=== PATIENT | female | born 1945 | race Caucasian/White ===

== ENCOUNTER 2023-09-10 08:00 | Outpatient (CLI) | payer MEDICARE, OTHER, SELFPAY ==
--- NOTE | ~2023-09-10 | MR_ITS ---
EXAMINATION: MR cervical spine wo con DATE: 09/10/2023 08:38 INDICATION: Other cervical disc degeneration. Neck pain. TECHNIQUE: Magnetic resonance imaging (MRI) of the cervical spine was performed without intravenous c ontrast. COMPARISON: None FINDINGS: There is 6 degrees levocurvature of cervicothoracic spine. There is 2 mm anterolisthesis of C7 on T1. Vertebral body heights are normal. There is moderately decreased disc height at C4-C5 and severely decreased disc height at C5-C6 and C6-C7. The spinal cord signal intensity is normal. The fo llowing disc levels are specifically discussed: C2-C3: The disc does not extend beyond the endplate margin. There is no uncovertebral joint osteoarth ritis. There is ankylosis of the facet joints without hypertrophy. There is no neural foraminal steno sis. There is no central canal stenosis. C3-C4: The disc does not extend beyond the endplate margin. There is moderate right and severe left u ncovertebral joint osteoarthritis. There is moderate right and severe left facet joint osteoarthritis . There is mild right and moderate left neural foraminal stenosis. There is no central canal stenosis . C4-C5: The disc is bulging. There is severe bilateral uncovertebral joint osteoarthritis. There is se melody bilateral facet joint osteoarthritis. There is mild bilateral neural foraminal stenosis. There i s mild central canal stenosis with ventral indentation of the spinal cord. C5-C6: The disc is bulging. There is severe bilateral uncovertebral joint osteoarthritis. There is se melody bilateral facet joint osteoarthritis. There is moderate right and mild left neural foraminal everette nosis. There is mild central canal stenosis with ventral indentation of the spinal cord. C6-C7: The disc is bulging. There is severe bilateral uncovertebral joint osteoarthritis. There is se melody right and mild left facet joint osteoarthritis. There is mild bilateral neural foraminal stenosi s. There is mild central canal stenosis. C7-T1: The disc does not extend beyond the endplate margin. There is no uncovertebral joint osteoarth ritis. There is severe bilateral facet joint osteoarthritis. There is mild bilateral neural foraminal stenosis. There is no central canal stenosis. IMPRESSION: 1. Severe cervical spondylosis. Reviewed, dictated and finalized at location A.
== END 2023-09-10 08:01 ==
DX: M43.02 Spondylolysis, cervical region (principal)
CPT/HCPCS: 72141

== ENCOUNTER 2023-11-27 13:56 | Outpatient (CLI) | payer MEDICARE, OTHER, SELFPAY ==
[2023-11-27 19:26] LABS: Basophils Absolute Auto 0.1 K/mm3 (0.0-0.1); Basophils Percent Auto 0.7 % (0.2-1.2); Eosinophils Absolute Auto 0.6 K/mm3 (0-0.3); Eosinophils Percent Auto 6.5 % (0-4.4); Hematocrit 46.4 % (37.0-47.0); Hemoglobin 15.4 g/dL (12.0-15.0); Immature Granulocyte Absolute 0.03 K/mm3 (0.00-0.031); Immature Granulocyte Percent A 0.3 % (0-0.5); Lymphocytes Absolute Auto 1.67 K/mm3 (0.9-3.2); Lymphocytes Percent Auto 17.2 % (18.3-44.2); Mean Corpuscular HGB Conc 33.2 g/dl (32-36); Mean Corpuscular Hemoglobin 30.1 pg (26-34); Mean Corpuscular Volume 90.6 fl (80-100); Mean Platelet Volume 10.9 fl (7.4-10.4); Monocytes Absolute Auto 0.7 K/mm3 (0.1-0.6); Neutrophils Absolute Auto 6.6 K/mm3 (1.3-6.7); Neutrophils Percent Auto 68.3 % (45.5-73.1); Platelet Count Result 202 k/mm3 (150-375); Red Blood Count 5.12 M/mm3 (4.2-5.4); Red Cell Distribution Width 14.2 % (11.5-14.5); White Blood Count 9.7 K/mm3 (4.5-10.0)
[2023-11-27 19:30] LABS: Alanine Aminotransferase 19 U/L (6-35); Albumin Level 4.3 g/dL (3.5-5.1); Alkaline Phosphatase 65 U/L (38-126); Anion Gap 6 mmol/L (4-12); Aspartate Amino Transferase 36 U/L (14-36); Bilirubin,Total 0.7 mg/dL (0.2-1.3); Blood Urea Nitrogen 14 mg/dL (7-17); Calcium 10.4 mg/dL (8.4-10.2); Carbon Dioxide 33 mmol/L (22-30); Chloride 99 mmol/L (98-107); Cholesterol 173 mg/dL (0-200); Estimated Glomerular Filt Rate > 60; Glucose 96 mg/dL (65-110); HDL Direct 40 mg/dL; Potassium 4.2 mmol/L (3.4-5.0); Sodium 138 mmol/L (137-145); Triglycerides 188 mg/dL (<150)
[2023-11-27 19:40] LABS: Vitamin D 25 Hydroxy 65.5 ng/mL
[2023-11-27 19:41] LABS: LDL Cholesterol Direct 91 mg/dL
== END 2023-11-27 13:57 | disposition home or self-care (01) ==
PROVIDERS: PCP Nurse Practitioner Adult Health; Visit Provider Nurse Practitioner Adult Health
DX: E55.9 Vitamin D deficiency, unspecified (principal); E78.5 Hyperlipidemia, unspecified
CPT/HCPCS: 36415; 80053; 80061; 82306; 84443; 85025

== ENCOUNTER 2024-04-01 10:32 | Outpatient (CLI) | payer MEDICARE, OTHER, SELFPAY ==
--- OUTSIDE RECORDS SUMMARY | 2024-04-01 10:48 | XMS_ITS | Continuity of Care Document ---
Author Name [facility] Organization [facility] Care Team Providers Care Resident Services Director Name Role Phone [facility] Unavailable Unavailable Medications Combined list of outpatient medications from Department of Defense and Veterans Affairs facilities.Medications provided include 1) outpatient medications from the last 15 months, and 2) patient-reported medications. Medication Details Route Status Patient Instructions Prescription Expires Prescription Number Last Dispense Date Ordering Provider Order Date Order Qty Source LOVASTATIN (lovastatin ), 40 MG, TABLET, ORAL, [employer] 1000 ea. BOTTLE Active [id number] 4 2023 90 Pharmac y Data Transac tion Service Facilit y METOPROLOL SUCCINATE (metoprolol succinate), 25 MG, TAB ER 24H, ORAL, [employer] 1000 ea. BOTTLE Active [id number] 4 2023 90 Pharmac y Data Transac tion Service Facilit y POTASSIUM CHLORIDE (potassium chloride), 20 MEQ, TAB ER PRT, ORAL, [employer], 500 ea. BOTTLE Active [id number] 4 2023 90 Pharmac y Data Transac tion Service Facilit y SYNTHROID (LEVOTHYROX INE SODIUM), 137 MCG, TABLET, ORAL, [facility] 90 ea. BOTTLE Active [id number] 4 2023 90 Pharmac y Data Transac tion Service Facilit y VITAMIN D2 (ergocalcif luis (vitamin D2)), 1250 MCG, CAPSULE, ORAL, [employer], 100 ea. BOTTLE Active [id number] 4 2023 12 Pharmac y Data Transac tion Service Facilit y VITAMIN D2 (ergocalcif luis (vitamin D2)), 1250 MCG, CAPSULE, ORAL, [employer], 100 ea. BOTTLE Active [id number] 4 2023 12 Pharmac y Data Transac tion Service Facilit y XARELTO (RIVAROXABA N), 20 MG, TABLET, ORAL, [facility] 90 ea. BOTTLE Active [id number] 4 2023 90 Pharmac y Data Transac tion Service Facilit y Allergies, Adverse Reactions, Alerts Combined list of allergies from Department of Defense and Veterans Affairs facilities. It does not include entries that were removed or entered in error. Substance Category Reaction Severity Reaction type Status Date Reported Comments Source CODEINE SULFATE (CODEINE SULF) Drug allergy (disorder) Unknown active 02/28/2007 [facility] ([facility]) Immunizations Combined list of available immunizations from the Department of Defense and Veterans Affairs facilities. Immunization Series Date Given Administered By Site Reaction Lot Number CVX Code Drug Experimental Psychologist Status Comments Source zoster recombinant 2019 ROB [facility]ILDERS () Not Given zoster recombina nt DoD Procedures Combined list of: 1) Procedures from Department of Veterans Affairs facilities going back up to thelast 18 months, not all [place] non-surgical procedures are included; 2) All procedures from the Department of Defense facilities. Procedure Procedure Type Code Date Perfomer Comments Francisco arango DIAGNOSTIC ULTRASOUND OF ABDOMEN AND RETROPERITONEUM 10/18/1994 [facility] UNILATERAL THYROID LOBECTOMY 08/23/1994 [facility] LAPAROSCOPIC CHOLECYSTECTOMY 07/21/1994 [facility] Social History Combined list of available smoking, tobacco, and other social history from Department of Defense and Veterans Affairs facilities. Social History Type Response Date Comment Francisco arango This section is an empty social history section. [facility]
--- OUTSIDE RECORDS SUMMARY | 2024-04-01 10:48 | XMS_ITS | Encounter Summary ---
Author Organization [facility] Address [address] [place] [id number] Care Team Providers Care Art Objects Salesperson Name Role Phone None, Provider Primary Care Provider Unavaila ble Reason for Referral * Surgical (Routine) - New Request Specialty Diagnoses / Procedures Referred By Porter shetty Referred To Contact Diagnoses Arthropathy of cervical facet joint Procedures Case request operating room: [facility] Cleve Deleon CNP [address] [address] Phone: tel: [phone] fax: Referral ID Status Reason Start Date Expiration Date V isits Requested Visits Authorized [id number] New Request 11/29/2023 11/28/2024 1 1 Encounter Details Date Type Department Care Team (Late st Contact Info) Description 11/29/2023 Prep for Procedure [facility] [address] [place], [place] [id number] [facility] [address] [facility] [address] [phone] (Work) Social History Tobacco Use Types Packs/Day Years Used Date Smoking Tobacco: Never Smokeless Tobacco: Never Alcohol Use Standard Drinks/Week Comments Not Currently 0 (1 standard drink = 0.6 oz pur e alcohol) Comments No Sex and Gender Information Value Date Recorded Sex Assigned at Not on file Legal Sex Female 11:43 AM CDT Gender Identity Not on file Sexual Orientation Not on file documented as of this encounter Plan of Treatment Not on file documented as of this encounter Visit Diagnoses Diagnosis Arthropathy of cervical facet joint- Primary Cervical spondylosis without myelopathy documented in this encounter Care Teams Art Objects Salesperson Relationship Specialty Start Date End Date None, Provider, PCP - General UNKNOWN PHYSICIAN SPECIALTY 10/09/23 documented as of this encounter
--- OUTSIDE RECORDS SUMMARY | 2024-04-01 10:48 | XMS_ITS | Encounter Summary ---
Author Organization [facility] Address [address] [place] [id number] Care Team Providers Care Radiology Receptionist Name Role Phone None, Provider Primary Care Provider Unavaila ble Reason for Referral * Surgical (Routine) - New Request Specialty Diagnoses / Procedures Referred By Porter shetty Referred To Contact Diagnoses Myofascial pain Procedures Case request operating room: [facility] Cleve Deleon CNP [address] [address] Phone: tel: [phone] fax: Referral ID Status Reason Start Date Expiration Date V isits Requested Visits Authorized [id number] New Request 12/24/2023 12/23/2024 1 1 ROLL OPERATOR Encounter Details Date Type Department Care Team (Late st Contact Info) Description 12/24/2023 Prep for Procedure [facility] [place], [place] [phone] [id number] [facility] [phone] (Work) Social History Tobacco Use Types Packs/Day [...] as of this encounter Visit Diagnoses Diagnosis Myofascial pain- Primary Mylagia and myositis, unspecified documented in this encounter Care Teams Radiology Receptionist Relationship Specialty Start Date End Date None, Provider, MD PCP - General UNKNOWN PHYSICIAN SPECIALTY 10/09/23 documented as of this encounter
--- OUTSIDE RECORDS SUMMARY | 2024-04-01 10:48 | XMS_ITS | Referral Summary ---
Author Organization [facility] al Address [address] [place] [address] Care Team Providers Care Software Configuration Engineer Name Role Phone Juanita Grover MD Unavailable Jose Mason MD Unavailable Sanam Chavez NP Primary Care Provider [phone] Encounters Date Type Department Care Team Description 02/27/2024 10:15 AM CLINIC DIRECTOR Office Visit [facility]mology [address] [facility] 6th [place] [address] Margo Kaminski MD PhD Retinal hemorrhage of left eye (Primary Dx); Drusen (degenerative) of macula, bilateral 01/03/2024 Telephone [facility] Ophthalmology [address] [place] [phone] Margo Kaminski MD PhD r/s appt from Last 3 Months Allergies Active Allergy Reactions Criticality Noted Date Comments Codeine Stomach upset,Dizziness,Fatigue Low 01/04/2010 Hydrocodone Nausea & Vomiting Low Oxycodone-Acetaminophen Nausea & Vomiting Low Medications omeprazole (PriLOSEC) 20 mg capsule 8 Active XARELTO 20 mg tablet Take 1 tablet (20 mg total) by mouth daily 9 Active lovastatin (MEVACOR) 40 mg tablet 2 Active fluorometholone (FML) 0.1 % ophthalmic suspension INSTILL 1 DROP IN BOTH EYES TWICE A DAY 30 mL 3 3 Active cyclobenzaprine (FLEXERIL) 5 mg tablet Active menthol 4 % gelIndications: Arthritic Pain Apply 1 Application topically 3 (three) times a day as needed (pain) 473 mL 4 Active lidocaine (LMX) 4 % cream Apply topically daily as needed for pain 28 g 4 Active propranolol LA (INDERAL LA) 60 mg 24 hr capsule 4 Active Synthroid 137 mcg tablet 4 Active Active Problems Problem Noted Date Diagnosed Date SVT (supraventricular tachycardia) 06/13/2023 History of DVT (deep vein thrombosis) 06/13/2023 Hypothyroid 06/13/2023 Retinal hemorrhage of left eye 10/17/2022 Assessment & Plan (10/17/2022 10:26 AM CDT): Small, isolated , juxtapapillary, subacute without other hemorrhage, cystoid macular edema (CME) or subretinal fluid. Drusen (degenerative) of macula, bilateral 10/17 Retinal disorder 10/05/2022 Assessment & Plan (10/05/2022 2:04 PM CDT): DFE today with hemorrhage next to disc located inferotemporally OS Hx of RT and PVD OS IOP 17/18 tonopen To see retina for further evaluation Knee joint pain 07/25/2022 Primary osteoarthritis of both knees 06/13/2022 Vitreous floaters of both eyes 04/28/2021 Assessment & Plan (04/28/2021 1:40 PM CDT): Stable DFE today with old tear OS well-surrounded with laser. Allergic rhinitis 08/20/2019 Essential hypertension 08/20/2019 Dyslipidemia 08/20/2019 Retinal tear, left 11/28/2018 Assessment & Plan (12/04/2018 12:50 PM CDT): Attached 360 without subretinal fluid or traction, mild associated pigmentary changes indicating some chronicity. Largely asymptomatic.Discussed R/B/A of laser retinopexy today and patient wishes to proceed. Assessment & Plan (11/28/2018 1:10 PM CDT): Horseshoe retinal tear at 2:30 a.m. With surrounding pigment appears old Retinal evaluation within 1 week Pseudophakia of both eyes 11/13/2017 Assessment & Plan (03/09/2020 2:34 PM CLINIC DIRECTOR): Good result. Observe Assessment & Plan (11/13/2017 11:30 AM CDT): Vision improved with MRx. Lenses in good position - Plan for follow-up in 1 year History of breast cancer 09/19/2017 Overview (09/19/2017): Added automatically from request for surgery [id number] Seroma of breast 09/19/2017 Overview (09/19/2017): Added automatically from request for surgery [id number] Hx of breast reconstruction 09/19/2017 Overview (09/19/2017): Added automatically from request for surgery [id number] Astigmatism following corneal transplant 016 History of anticoagulant therapy 12/03/2015 Estrogen receptor positive status (ER+) 10/22/19 15 H/O breast reconstruction 07/16/2014 Postinflammatory hyperpigmentation 11/05/2013 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 Doing well overall. - Continue present management with FML BID both eyes (OU) - Systane OU PRN -MRx given - but not filled yet Assessment & Plan (04/28/2021 1:31 PM CDT): Grafts clear. Doing well overall. - Continue present management with FML BID both eyes (OU) - Systane OU PRN -MRx given - Follow-up in 1 year with DFE Assessment & Plan (03/09/2020 2:34 PM CLINIC DIRECTOR): Grafts clear. Doing well overall. - Continue present management with FML BID both eyes (OU) - Systane OU PRN - Follow-up in 1 year with DFE Assessment & Plan (11/28/2018 1:01 PM CDT): Grafts clear. Doing well overall. - Continue present management with FML BID both eyes (OU) - Systane OU PRN - Follow-up in 1 year with DFE Assessment & Plan (11/13/2017 11:30 AM CDT): Grafts clear. Doing well overall. - Continue present management with FML BID both eyes (OU) - Systane PRN both eyes (OU) - Follow-up in 1 year with DFE Resolved Problems Problem Noted Date Diagnosed Date Resolved Date Cataract 11/07/2016 09/06/2017 Deep vein thrombosis (DVT) ([facility]) 03/11/2014 09/06/2017 Pulmonary embolism 03/11/2014 8 Fuchs' corneal dystrophy of both eyes 01/04/2010 09/06/2017 Assessment & Plan (10/05/2022 2:32 PM CDT): DSEK OU Clear grafts Will f/u w/ local foxer / me prn Nuclear senile cataract 01/04/201008/13 Social History Tobacco Use Types Packs/Day Years Used Date Smoking Tobacco: Never Smokeless Tobacco: Never Tobacco Cessation:Counseling Given: Not Answered Alcohol Use Standard Drinks/Week Comments Not Currently 0 (1 standard drink = 0.6 oz pur e alcohol) AUDIT-C Answer Date Recorded Q1: How often do you have a drink containing alcohol? Never 06/13/2023 Q2: How many drinks containi ng alcohol do you have on a typical day when you are drinking? Patient does not drink Frequency of Binge Drinking Not on file 02/2023 Personal Safety Answer Date Recorded Have you ever been in or are you currently in a harmful physical or emotional relationship or is someone making you feel afraid or unsafe? Denies 06/13/2023 Comments No Sex and Gender Information Value Date Recorded Sex Assigned at Not on file Legal Sex Female 7:45 PM CLINIC DIRECTOR Gender Identity Not on file Sexual Orientation Not on file Last Filed Vital Signs Vital Sign Reading Time Taken Comments Blood Pressure 160/89 12/10/2023 10:57 AM CDT Pulse 69 12/10/2023 10:57 AM CDT Temperature 36.6 C (97.9 F) 12/10/2023 10:57 AM CDT Respiratory Rate 16 12/10/2023 10:5 7 AM CDT Oxygen Saturation 98% 12/10/2023 10: 57 AM CDT Inhaled Oxygen Concentration - - Weight 104.7 kg (230 lb 12.8 oz) 2023 10:57 AM CDT Height 167.6 cm (5' 6 ) 06/13/2023 2:40 AM CDT Body Mass Index 37.25 06/13/2023 2:40 AM CDT Plan of Treatment Not on file Medical Devices Implanted Type Area Irish Moss Operator Device Identifier Shelf Expiration Date Model / Serial / Lot [employer] [id number] Natrelle Inspira Smooth Full Profile Implant 695cc Breast - [id number] - [id number] Implanted:Qty: 1 on 10/02/2017 by Lorrie Doyle MD at [facility] Breast Left: Breast [employer] 04/18/2073 SSF-695 / [id number] / [id number] Explanted Type Area Irish Moss Operator Device Identifier Shelf Expiration Date Model / Serial / Lot [employer] [id number] Natrelle 12.5x13cm Style 410mx Highly Cohesive Biocell Surface Latex Free - S000 - [id number] Explanted:Qty: 1 on 10/02/2017 by Lorrie Doyle MD at [facility] Breast Left: Breast [employer] 10/02/2017 [id number] / [id number] Procedures Procedure Name Priority Date/Time Associated Diagnosis Comments FUNDUS PHOTOS/FAF - OU - BOTH EYES Routine 02/27/2024 11:08 AM CLINIC DIRECTOR Retinal hemorrhage of left eye OCT, RETINA - OU - BOTH EYES Routine 02/27/2024 11:07 AM CLINIC DIRECTOR Retinal hemorrhage of left eye Drusen (degenerative) of macula, bilateral DEXA AXIAL SKELETON BONE DENSITY 1 OR MORE SITES Schedule Routine, Read Routine (OP Routine) 10/24/2019 10:34 AM CDT Primary malignant neoplasm of upper outer quadrant of female breast, left (CMS/HCC) Estrogen receptor positive status (ER+) from Last 3 Months or Most Recently Relevant to Health Maintenance Results * Fundus Photos/FAF - OU - Both Eyes (02/27/2024 11:08 AM CLINIC DIRECTOR) Anatomical Region Laterality Modality Head Fundus Photograp hy Narrative 02/27/2024 11:08 AM CLINIC DIRECTOR Right eye (OD): wnl Left eye (OS): stable , subacute appearing, isolated juxtapapillary focal hemorrhage , superior retinal tear well surrounded by laser scars Margo Kaminski MD PhD OPHTH PHOTOGRAPHY Fi nal Result * OCT, Retina - OU - Both Eyes (02/27/2024 11:07 AM CLINIC DIRECTOR) Anatomical Region Laterality Modality Head Optical Coherenc e Tomography Narrative 02/27/2024 11:07 AM CLINIC DIRECTOR Right eye (OD): stable, drusen,no cystoid macular edema (CME) or subretinal fluid Left eye (OS);stable persistent mild focal juxtapapillary subretinal hemorrhage inferonasal macula, drusen, no cystoid macular edema (CME) or subretinal fluid Margo Kaminski MD PhD OPHTH TOMOGRAPHY Fin al Result * Dexa Axial Skeleton Bone Density 1 or 2 Site (10/24/2019 10:34 AM CDT) Anatomical Region Laterality Modality Body N/A Digital Radiogra phy 10/24/2019 10:5 0 AM CDT Impressions 10/24/2019 11:20 AM CDT 1. The bone mineral density of the lumbar spine is normal. There has been a statistically significant decrease in bone mineral density since the baseline examination of 10/14/2013. 2. The bone mineral density of the left femoral neck is mildly decreased. 3. The bone mineral density of the left total hip is normal. There has been a statistically significant decrease in bone mineral density since the baseline examination of 10/14/2013. 4. Overall, the above findings are diagnostic of low bone mass (osteopenia) by WHO criteria. 5. Calculation of fracture risk using the FRAX model is not appropriate in certain settings. It was not performed in this patient because the patient met one or more of the following conditions: Use of antiresorptive therapy within 2 years.. General comments regarding interpretation of bone mineral density measurements: A) In children, premenopausal woman and males under age 50 not at increased risk for fractures only Z-scores, not T-scores are used to indicate risk. A Z-score above -2.0 is defined as within the expected range for age and Z-score at or less than -2.0 is below the expected range for age . A Z-score below the expected range for age in a patient with recent fractures and/or chronic corticosteroid treatment is consistent with a diagnosis of osteoporosis. B) In post menopausal women and males over 50, comparison of the measured bone mineral density with the average value in young normal subjects (the T-score ) has been found to be useful in assessing fracture risk. Fracture risk approximately doubles for each 1.0 standard deviation (SD) in individual's hip or spine bone mineral density is below the average value of young normal subjects. The World Health Organization (WHO) has defined T-scores of -1.0 to -2.5 as diagnostic of low bone mass (OSTEOPENIA), and T-scores of -2.5 or lower to be diagnostic of OSTEOPOROSIS, based on the site of lowest bone density. Note that there will be a change in reporting format and reference databases as patients move from the younger population (group A) to the older population (group B) The National Osteoporosis Foundation (www.nof.org) recommends adequate intake of calcium and vitamin D and regular weight-bearing exercise in all patients. They recommend pharmacologic treatment in postmenopausal women and men age 50 and older presenting with any of the followin) Osteoporosis, after appropriate evaluation to exclude secondary causes. 2) A hip or vertebral (clinical or radiographic) fracture, regardless of the bone density. 3) Low bone mass (Osteopenia) and one or more of: other prior fractures, secondary causes associated with high risk of fracture (such as glucocorticoid use or total immobilization), or computed high risk of fracture (10-yr probability of hip fracture >= 3% or a 10-yr probability of any major osteoporosis-related fracture >= 20% based on the [place].-adapted WHO algorithm), available at http://www.shef.ac.uk/FRAX). Dictated by: Herber Lees M.D. The radiology attending physician has personally reviewed this study, and had reviewed and/or edited this written report and agrees with it. Electronically signed by: Vladislav Zambrano M.D., Ph.D. Narrative 10/24/2019 11:20 AM CDT BONE DENSITOMETRY OF THE SPINE AND HIP DATE OF STUDY: 10/24/2019 HISTORY: 73-year-old postmenopausal woman with cessation of menstruation at age 40, and self-reported loss of height, early menopause, and thyroid and breast cancer previously treated with exemestane. She is being treated with ibandronate and vitamin D. Evaluate bone mineral density. FINDINGS (SPINE): The bone mineral density of L1, L2, L4 was assessed by dual-energy x-ray absorptiometry. L3 vertebral body was excluded due to significant differences with adjacent levels. The average bone mineral density within this region is 1.217 gm/sq-cm. This is 4.1 standard deviations above the mean of the average bone mineral density for age- and gender-matched subjects (the Z-score). It is 1.7 standard deviations above the mean peak bone mineral density in young adults (the T-score). FINDINGS (FEMORAL NECK): The bone mineral density of the left femoral neck was assessed by dual-energy x-ray absorptiometry. The average bone mineral density within the femoral neck region is 0.664 gm/sq-cm. This is 0.5 standard deviations above the mean of the average bone mineral density for age- and gender-matched subjects (the Z-score). It is 1.7 standard deviations below the mean peak bone mineral density in young adults (the T-score). FINDINGS (TOTAL HIP): The bone mineral density of the left hip was assessed by dual-energy x-ray absorptiometry. The average bone mineral density within the total hip region is 0.871 gm/sq-cm. This is 1.2 standard deviations above the mean of the average bone mineral density for age- and gender-matched subjects (the Z-score). It is 0.6 standard deviations below the mean peak bone mineral density in young adults (the T-score). SUMMARY OF CURRENT RESULTS: Region Exam Date BMD T-Score Z-Score AP Spine (L1, L2, L4) 10/24/2019 1.217 1.7 4.1 Femoral Neck (Left) 10/24/2019 0.664 -1.7 0.5 Total Hip (Left) 10/24/2019 0.871 -0.6 1.2 COMPARISON WITH PREVIOUS RESULTS Region Age BMD T-Score BMD Change BMD Change Exam Date g/cm2 vs Baseline vs Previous AP Spine(L1, L2, L4) 10/24/2019 73 1.217 1.7 -1.8% -1.1% 05/27/2018 72 1.230 1.8 -0.7% -0.7% 10/14/2013 67 1.239 1.9 Total Hip(Left) 10/24/2019 73 0.871 -0.6 -12.8%* -4.6%* 05/27/2018 72 0.913 -0.2 -8.6%* 3.2%* 02/20/2017 71 0.884 -0.5 -11.4%* -11.4%* 10/14/2013 67 0.998 0.5 * Indicates significant change Procedure Note Vladislav Zambrano MD - 10/24/2019 BONE DENSITOMETRY OF THE SPINE AND HIP DATE OF STUDY: 10/24/2019 HISTORY: 73-year-old postmenopausal woman with cessation of menstruation at age 40, and self-reported loss of height, early menopause, and thyroid and breast cancer previously treated with exemestane. She is being treated with ibandronate and vitamin D. Evaluate bone mineral density. FINDINGS (SPINE): The bone mineral density of L1, L2, L4 was assessed by dual-energy x-ray absorptiometry. L3 vertebral body was excluded due to significant differences with adjacent levels. The average bone mineral density within this region is 1.217 gm/sq-cm. This is 4.1 standard deviations above the mean of the average bone mineral density for age- and gender-matched subjects (the Z-score). It is 1.7 standard deviations above the mean peak bone mineral density in young adults (the T-score). FINDINGS (FEMORAL NECK): The bone mineral density of the left femoral neck was assessed by dual-energy x-ray absorptiometry. The average bone mineral density within the femoral neck region is 0.664 gm/sq-cm. This is 0.5 standard deviations above the mean of the average bone mineral density for age- and gender-matched subjects (the Z-score). It is 1.7 standard deviations below the mean peak bone mineral density in young adults (the T-score). FINDINGS (TOTAL HIP): The bone mineral density of the left hip was assessed by dual-energy x-ray absorptiometry. The average bone mineral density within the total hip region is 0.871 gm/sq-cm. This is 1.2 standard deviations above the mean of the average bone mineral density for age- and gender-matched subjects (the Z-score). It is 0.6 standard deviations below the mean peak bone mineral density in young adults (the T-score). SUMMARY OF CURRENT RESULTS: Region Exam Date BMD T-Score Z-Score AP Spine (L1, L2, L4) 10/24/2019 1.217 1.7 4.1 Femoral Neck (Left) 10/24/2019 0.664 -1.7 0.5 Total Hip (Left) 10/24/2019 0.871 -0.6 1.2 COMPARISON WITH PREVIOUS RESULTS Region Age BMD T-Score BMD Change BMD Change Exam Date g/cm2 vs Baseline vs Previous AP Spine(L1, L2, L4) 10/24/2019 73 1.217 1.7 -1.8% -1.1% 05/27/2018 72 1.230 1.8 -0.7% -0.7% 10/14/2013 67 1.239 1.9 Total Hip(Left) 10/24/2019 73 0.871 -0.6 -12.8%* -4.6%* 05/27/2018 72 0.913 -0.2 -8.6%* 3.2%* 02/20/2017 71 0.884 -0.5 -11.4%* -11.4%* 10/14/2013 67 0.998 0.5 * Indicates significant change IMPRESSION: 1. The bone mineral density of the lumbar spine is normal. There has been a statistically significant decrease in bone mineral density since the baseline examination of 10/14/2013. 2. The bone mineral density of the left femoral neck is mildly decreased. 3. The bone mineral density of the left total hip is normal. There has been a statistically significant decrease in bone mineral density since the baseline examination of 10/14/2013. 4. Overall, the above findings are diagnostic of low bone mass (osteopenia) by WHO criteria. 5. Calculation of fracture risk using the FRAX model is not appropriate in certain settings. It was not performed in this patient because the patient met one or more of the following conditions: Use of antiresorptive therapy within 2 years.. General comments regarding interpretation of bone mineral density measurements: A) In children, premenopausal woman and males under age 50 not at increased risk for fractures only Z-scores, not T-scores are used to indicate risk. A Z-score above -2.0 is defined as within the expected range for age and Z-score at or less than -2.0 is below the expected range for age . A Z-score below the expected range for age in a patient with recent fractures and/or chronic corticosteroid treatment is consistent with a diagnosis of osteoporosis. B) In post menopausal women and males over 50, comparison of the measured bone mineral density with the average value in young normal subjects (the T-score ) has been found to be useful in assessing fracture risk. Fracture risk approximately doubles for each 1.0 standard deviation (SD) in individual's hip or spine bone mineral density is below the average value of young normal subjects. The World Health Organization (WHO) has defined T-scores of -1.0 to -2.5 as diagnostic of low bone mass (OSTEOPENIA), and T-scores of -2.5 or lower to be diagnostic of OSTEOPOROSIS, based on the site of lowest bone density. Note that there will be a change in reporting format and reference databases as patients move from the younger population (group A) to the older population (group B) The National Osteoporosis Foundation (www.nof.org) recommends adequate intake of calcium and vitamin D and regular weight-bearing exercise in all patients. They recommend pharmacologic treatment in postmenopausal women and men age 50 and older presenting with any of the followin) Osteoporosis, after appropriate evaluation to exclude secondary causes. 2) A hip or vertebral (clinical or radiographic) fracture, regardless of the bone density. 3) Low bone mass (Osteopenia) and one or more of: other prior fractures, secondary causes associated with high risk of fracture (such as glucocorticoid use or total immobilization), or computed high risk of fracture (10-yr probability of hip fracture >= 3% or a 10-yr probability of any major osteoporosis-related fracture >= 20% based on the [place].-adapted WHO algorithm), available at http://www.shef.ac.uk/FRAX). Dictated by: Herber Lees M.D. The radiology attending physician has personally reviewed this study, and had reviewed and/or edited this written report and agrees with it. Electronically signed by: Vladislav Zambrano M.D., Ph.D. us Tolu Berg MD PhD IMG DXA PROCEDURES Final Result from Last 3 Months or Most Recently Relevant to Health Maintenance Insurance MEDICARE FOR LIFE MEDICARE FOR LIFE MEDICARE [facility] Address: [address] [address] [place] [address] FOR LIFE Advance Directives For more information, please contact: [phone] * Full Code (Latest Code Status on File) Date Activated Date Inactivated Comments 06/13/2023 12:26 AM 06/13/2023 5:21 PM Care Teams Software Configuration Engineer Relationship Specialty Start Date End Date Sanam Chavez NP [address] [place] [address] [place] [address] PCP - General Nurse Practitioner 01/03/24 [place] [address] [address] Consulting Physician Cardiology 06/24/18 Jose Mason MD [address] [place] [address] Consulting Physician Cardiology 06/13/23
--- OUTSIDE RECORDS SUMMARY | 2024-04-01 10:48 | XMS_ITS | Clinical Summary ---
Author Organization [facility] al Address [address] [place] [address] Care Team Providers Care Retail Helper Name Role Phone Juanita Grover MD Unavailable Jose Mason MD Unavailable [phone] Sanam Chavez NP Primary Care Provider [phone] Allergies Active Allergy Reactions Criticality Noted Date [...] 11/13/2017 Assessment & Plan (03/09/2020 2:34 PM HEALTH CARE MARKETING SPECIALIST): Good result. Observe Assessment & Plan (11/13/2017 11:30 AM CDT): Vision improved with MRx. Lenses in good position - Plan for follow-up in 1 year History of breast cancer 09/19/2017 Overview (09/19/2017): Added automatically from request for surgery [id number] Seroma of breast 09/19/2017 Overview (09/19/2017): Added automatically from request for surgery [id number] Hx of breast reconstruction 09/19/2017 Overview (09/19/2017): Added automatically from request for surgery [id number] Astigmatism following corneal transplant 016 History of [...] DFE Assessment & Plan (03/09/2020 2:34 PM HEALTH CARE MARKETING SPECIALIST): Grafts clear. Doing well overall. - Continue [...] Cataract 11/07/2016 09/06/2017 Deep vein thrombosis (DVT) (CMS/HCC) 03/11/2014 09/06/2017 Pulmonary embolism 03/11/2014 8 Fuchs' corneal dystrophy of both eyes 01/04/2010 09/06/2017 Assessment & Plan (10/05/2022 2:32 PM CDT): DSEK OU Clear grafts Will f/u w/ local geoscience laboratory technician / me prn Nuclear senile cataract 01/04/201008/13 Encounters Date Type Department Care Team Description 02/27/2024 10:15 AM HEALTH CARE MARKETING SPECIALIST Office Visit [facility] [address] [facility] [address]th [place] [address] Margo Kaminski MD PhD Retinal hemorrhage of left eye (Primary Dx); Drusen (degenerative) of macula, bilateral 01/03/2024 Telephone [facility] [address] [place] [address] Margo Kaminski MD PhD r/s appt from Last 3 Months Surgical History Surgery Date Site/Laterality Comments PORT PLACEMENT CHEST >5 YEARS 05/29/2013 N/A CHOLECYSTECTOMY THYROIDECTOMY 1964 and 1995 partial: total thyroidectomy 1995 CATARACT EXTRACTION, BILATERAL Bilateral CERVICAL CONE BIOPSY CATARACT EXTRACTION 03/15/2015 - 04/12/2015 Right CATARACT EXTRACTION 02/12/2010 - 02/11/2011 Left CORNEAL TRANSPLANT 08/04/2015 Right CORNEAL TRANSPLANT 02/12/2011 - 02/12/2012 Left Medical History Medical History Date Comments DVT (deep venous thrombosis) (CMS/HCC) (HCC) 2013 pulmonary embolism multiple Hypothyroid htn Hyperlipidemia GERD Osteoporosis obesity Obesity Breast cancer (HCC) 04/2015 left: Chemo Cornea transplant recipient 2014 bila teral History of breast reconstruction Acute pain after mastectomy deve oped MRSA MRSA (methicillin resistant staph aureus) culture positive Fuchs' corneal dystrophy Retinal hemorrhage, left SVT (supraventricular tachycardia) (HCC) Family History Medical History Relation Name Comments Diabetes Brother Heart attack Brother Heart attack Father Diabetes Mother Heart attack Mother Hypertension Mother Glaucoma Neg Hx Macular degeneration Neg Hx Relation Name Status Comments Brother Father Mother Social History Tobacco Use Types Packs/Day Years [...] on file Legal Sex Female 7:45 PM HEALTH CARE MARKETING SPECIALIST Gender Identity Not on file Sexual Orientation Not on file Obstetrics History Last Filed Vital Signs Vital Sign Reading [...] 06/13/2023 2:40 AM CDT Plan of Treatment Health Maintenance Due Date Last Done Comments Depression Screening 1945 Hepatitis B Screening 11/09[birth year]1961 Well Visit 65+ 11/09/2008 Zoster Vaccine (3 of 3) 03/03/2019 01/06/2019, 11/22 Osteoporosis Screening-Bone Density Scan 10/23/2021 10/24/2019, 05/27/2018, 02/20/2017, Additional history exists DTaP/Tdap/Td Vaccine (2 - Td or Tdap) 01/16/2022 01/17/2012 Covid-19 Vaccine (3 - 2023-2 5 season) 2023 04/29/2020, 04/29/2020, 04/08/2020, Additional history exists Influenza Vaccine (#1) 2023 9, 11/29/2017, 02/22/2017, Additional history exists Fall Risk Assessment 06/12/2024 06/13/2023 Pneumococcal vaccine 65+ Completed 02/22/2017, 11/12 Medical Devices Implanted Type Area Burlap Bag Sewer Device Identifier Shelf Expiration Date Model / Serial / Lot [employer] Ssf-695 Natrelle Inspira Smooth Full Profile Implant 695cc Breast - [id number] - [id number] Implanted:Qty: 1 on 10/02/2017 by Lorrie Doyle MD at [facility] Breast Left: Breast [employer] 04/18/2073 SSF-695 / [id number] / [id number] Explanted Type Area Burlap Bag Sewer Device Identifier Shelf Expiration Date Model / Serial / Lot [employer] [id number] Natrelle 12.5x13cm Style 410mx Highly Cohesive Biocell Surface Latex Free - [id number] - [id number] Explanted:Qty: 1 on 10/02/2017 by Lorrie Doyle MD at [facility] Breast Left: Breast [employer] 10/02/2017 [id number] / [id number] Procedures Procedure Name Priority Date/Time Associated Diagnosis Comments FUNDUS PHOTOS/FAF - OU - BOTH EYES Routine 02/27/2024 11:08 AM HEALTH CARE MARKETING SPECIALIST Retinal hemorrhage of left eye OCT, RETINA - OU - BOTH EYES Routine 02/27/2024 11:07 AM HEALTH CARE MARKETING SPECIALIST Retinal hemorrhage of left eye Drusen (degenerative) [...] OU - Both Eyes (02/27/2024 11:08 AM HEALTH CARE MARKETING SPECIALIST) Anatomical Region Laterality Modality Head Fundus Photograp hy Narrative 02/27/2024 11:08 AM HEALTH CARE MARKETING SPECIALIST Right eye (OD): wnl Left eye (OS): stable , subacute appearing, isolated juxtapapillary focal hemorrhage , superior retinal tear well surrounded by laser scars Margo Kaminski MD PhD OPHTH PHOTOGRAPHY Fi nal Result * OCT, Retina - OU - Both Eyes (02/27/2024 11:07 AM HEALTH CARE MARKETING SPECIALIST) Anatomical Region Laterality Modality Head Optical Coherenc e Tomography Narrative 02/27/2024 11:07 AM HEALTH CARE MARKETING SPECIALIST Right eye (OD): stable, drusen,no cystoid macular [...] Electronically signed by: Vladislav Zambrano M.D., Ph.D. Tolu Berg MD PhD IMG DXA PROCEDURES Final Result from Last 3 Months or Most Recently Relevant to Health Maintenance Insurance FOR LIFE FOR LIFE MEDICARE FOR LIFE Advance Directives For more information, please contact: [phone] * Full Code (Latest Code Status on File) Date Activated Date Inactivated Comments 06/13/2023 12:26 AM 06/13/2023 5:21 PM Care Teams Retail Helper Relationship Specialty Start Date End Date Sanam Chavez NP [facility] [place] [address] PCP - General Nurse Practitioner 01/03/24 [place] [id number] [phone] Consulting Physician Cardiology 06/24/18 Jose Mason MD [address] [place] [address] Consulting Physician Cardiology 06/13/23
--- OUTSIDE RECORDS SUMMARY | 2024-04-01 10:48 | XMS_ITS | Clinical Summary ---
Author Organization [facility] Address [address] [place] [address] Care Team Providers Care Bulk Filler Name Role Phone None, Provider MD Primary Care Provider Unavaila ble Allergies Active Allergy Reactions Criticality Noted Date Comments Codeine Dizziness,Fatigue,GI Upset,Unknown Low 02/28/2007 Hydrocodone Nausea and Vomiting Low 10/09/2023 Metoprolol Fatigue High 08/06/2023 Oxycodone-Acetaminophen Nausea and Vomiting Low Medications XARELTO 20 MG Tab tablet 06/28/2023 Active SYNTHROID 137 MCG tablet 06/28/2023 Active lovastatin (MEVACOR) 40 MG tablet 05/30/2023 Active vitamin D2, ergocalciferol, (DRISDOL) 1.25 mg capsule 09/06/2023 Active fluorometholone (FML) 0.1 % ophthalmic suspension Place 1 drop into both eyes 2 (two) times daily. 12/12/2022 Active Active Problems Problem Noted Date Diagnosed Date Arthropathy of cervical facet joint 11/29/2023 Cervical radiculopathy 10/17/2023 Social History Tobacco Use Types Packs/Day Years [...] Sign Reading Time Taken Comments Blood Pressure 151/80 12/21/2023 10:20 AM RIGGER SUPERVISOR Pulse 61 12/21/2023 10:20 AM RIGGER SUPERVISOR Temperature 36.3 C (97.3 F) 12/21/2023 9:18 AM RIGGER SUPERVISOR Respiratory Rate 18 12/21/2023 10:20 AM RIGGER SUPERVISOR Oxygen Saturation 95% 12/21/2023 10:20 AM RIGGER SUPERVISOR Inhaled Oxygen Concentration - - Weight 104.3 kg (230 lb) 12/21/2023 9:18 AM RIGGER SUPERVISOR Height 167.6 cm (5' 6 ) 12/21/2023 9:18 AM RIGGER SUPERVISOR Body Mass Index 37.12 12/21/2023 9:18 AM RIGGER SUPERVISOR Plan of Treatment Health Maintenance Due Date Last Done Comments Annual Medicare Wellness Visit 11/09/2008 RSV Immunization or 60+ Years (1 - 1-dose 75+ series) 11/09/2018 Zoster Vaccines (3 of 3) 03/03/2019 01/06/2019, 11/12 DTaP, Tdap and Td Vaccines (2 - Td or Tdap) 01/16/2022 01/17/2012 COVID-19 Vaccine ( - season) 2023 12/11/2022, 03/03/2021, 04/29/2020, Additional history exists Influenza Adult (#1) 2023 01/06/2019, 11/29/2017, 02/22/2017, Additional history exists Pneumococcal Vaccine: 65+ Years Completed 02/22/2017, 11/22/2010 Dexa Scan (General) Completed 10/24/2019, 10/24/2019, 05/27/2018, Additional history exists Meningococcal B Vaccine Aged Out No l onger eligible based on patient's age to complete this topic Meningococcal Vaccine Aged Out No brooke tavares eligible based on patient's age to complete this topic RSV Immunizations Under 20 Months Aged Out No longer eligible based on patient's age to complete this topic Insurance MEDICARE [facility] Care Teams Bulk Filler Relationship Specialty Start Date End Date None, Provider, MD PCP - General UNKNOWN PHYSICIAN SPECIALTY 10/09/23
[2024-04-01 19:29] LABS: Alanine Aminotransferase 18 U/L (6-35); Alkaline Phosphatase 62 U/L (38-126); Anion Gap 7 mmol/L (4-12); Aspartate Amino Transferase 39 U/L (14-36); Bilirubin,Total 0.5 mg/dL (0.2-1.3); Blood Urea Nitrogen 15 mg/dL (7-17); Calcium 10.3 mg/dL (8.4-10.2); Carbon Dioxide 33 mmol/L (22-30); Chloride 100 mmol/L (98-107); Cholesterol 165 mg/dL (0-200); Estimated Glomerular Filt Rate > 60; Glucose 111 mg/dL (65-110); HDL Direct 44 mg/dL; Potassium 4.6 mmol/L (3.4-5.0); Sodium 140 mmol/L (137-145); Triglycerides 142 mg/dL (<150)
[2024-04-01 19:40] LABS: LDL Cholesterol Direct 99 mg/dL
[2024-04-01 20:15] LABS: Erythrocyte Sedimentation Rate 25 mm/hr (0-20)
[2024-04-01 20:19] LABS: Vitamin D 25 Hydroxy 62.7 ng/mL
[2024-04-01 21:50] LABS: Free T4 Free Thyroxine Reflex 0.99 ng/dL (0.78-2.19)
[2024-04-01 22:34] LABS: Total Triiodothyronine (T3) 0.99 NG/ML (0.97-1.69)
== END 2024-04-01 10:33 | disposition home or self-care (01) ==
PROVIDERS: PCP Nurse Practitioner Adult Health; Visit Provider Nurse Practitioner Adult Health
DX: E78.5 Hyperlipidemia, unspecified (principal); E55.9 Vitamin D deficiency, unspecified; M79.2 Neuralgia and neuritis, unspecified; M13.0 Polyarthritis, unspecified
CPT/HCPCS: 36415; 80053; 80061; 82306; 82607; 84439; 84443; 84480; 85652

== ENCOUNTER 2024-08-04 11:18 | Outpatient (CLI) | payer MEDICARE, OTHER, SELFPAY ==
--- NOTE | ~2024-08-04 | XR_ITS ---
EXAM/ PROCEDURE: XR knee RT 3V, XR knee LT 3V - 08/04/2024 11:27 CDT HISTORY: 78 years old Female with M25.561 - Pain in right knee COMPARISON: None available TECHNIQUE: 4 views each FINDINGS/ IMPRESSION: Diffuse osteopenia limiting evaluation of fractures. Within the limitations of the examination, no fr actures seen. No dislocation noted. Joint space narrowing, subchondral sclerosis, subchondral cyst formation and osteophyte formation, co mpatible with severe osteoarthritis, most pronounced in the lateral tibiofemoral compartment. Reviewed, dictated and finalized at location A.
[2024-08-04 20:29] LABS: Alanine Aminotransferase 18 U/L (6-35); Albumin Level 4.4 g/dL (3.5-5.1); Alkaline Phosphatase 48 U/L (38-126); Anion Gap 6 mmol/L (4-12); Aspartate Amino Transferase 50 U/L (14-36); Bilirubin,Total 0.6 mg/dL (0.2-1.3); Blood Urea Nitrogen 12 mg/dL (7-17); Calcium 10.2 mg/dL (8.4-10.2); Carbon Dioxide 30 mmol/L (22-30); Chloride 105 mmol/L (98-107); Estimated Glomerular Filt Rate > 60; Glucose 100 mg/dL (65-110); Potassium 4.6 mmol/L (3.4-5.0); Sodium 141 mmol/L (137-145); Total Protein 7.2 g/dL (6.3-8.2)
[2024-08-04 21:01] LABS: Vitamin D 25 Hydroxy 60.4 ng/mL
== END 2024-08-04 11:19 | disposition home or self-care (01) ==
PROVIDERS: PCP Nurse Practitioner Adult Health; Visit Provider Nurse Practitioner Adult Health
DX: M85.88 Other specified disorders of bone density and structure, other site (principal); E78.5 Hyperlipidemia, unspecified; E55.9 Vitamin D deficiency, unspecified; E07.9 Disorder of thyroid, unspecified
CPT/HCPCS: 36415; 73562; 80053; 82306; 84443

== ENCOUNTER 2024-08-11 13:34 | Outpatient (CLI) | payer MEDICARE, OTHER, SELFPAY ==
--- NOTE | ~2024-08-11 | CT_ITS ---
Non-contrast Head CT History: Headache Technique: Axial non-contrast imaging of the brain was performed. Dose reduction technique was used on this scan by utilizing automated exposure control and iterative reconstruction technique. The dose -length product (DLP) was 605.33 mGy-cm. Findings: There is no evidence of intracranial hemorrhage, mass lesion, or acute infarct. Brain par enchyma appears normal. The ventricles and subarachnoid spaces are normal in size. The calvarium ap pears normal. The visualized paranasal sinuses and mastoid air cells are clear. Impression: No significant abnormality seen. Reviewed, dictated and finalized at location . Impression: No significant abnormality seen.
--- OUTSIDE RECORDS SUMMARY | 2024-08-11 13:53 | XMS_ITS | Encounter Summary ---
Author Organization [facility] Address [address] [place] [address] Care Team Providers Care Automobile Rental Representative Name Role Phone None, Provider Primary Care Provider Unavaila ble Reason for Referral * Surgical (Routine) - New Request Specialty Diagnoses / Procedures Referred By Porter shetty Referred To Contact Diagnoses Arthropathy of cervical facet joint Procedures Case request operating room: [facility] Cleve Deleon CNP [address] [address] Phone: tel: [phone] fax: Referral ID Status Reason Start Date Expiration Date V isits Requested Visits Authorized [id number] New Request 11/29/2023 11/28/2024 1 1 Encounter Details Date Type Department Care Team (Late st Contact Info) Description 11/29/2023 Prep for Procedure [facility] [place], [place] [phone] [facility] [phone] (Work) Social History Tobacco Use Types Packs/Day [...] as of this encounter Plan of Treatment Upcoming Encounters Date Type Department Care Team (Late st Contact Info) Description 08/20/2024 9:40 AM CDT Hospital Encounter [facility] [place] [address] [phone] Cleve Deleon, THERAPIST SPEECH 3 [facility] [address] [place] [address] [phone] (Work) documented as of this encounter Visit Diagnoses Diagnosis Arthropathy of cervical facet joint- Primary Cervical spondylosis without myelopathy documented in this encounter Care Teams Automobile Rental Representative Relationship Specialty Start Date End Date None, Provider, PCP - General UNKNOWN PHYSICIAN SPECIALTY 10/09/23 documented as of this encounter
--- OUTSIDE RECORDS SUMMARY | 2024-08-11 13:53 | XMS_ITS | Clinical Summary ---
Author Organization [facility] Address [address] [place] [address] Care Team Providers Care Ball Mill Operator Name Role Phone None, Provider MD Primary [...] Comments Blood Pressure 151/80 12/21/2023 10:20 AM STOCK ANALYST Pulse 61 12/21/2023 10:20 AM STOCK ANALYST Temperature 36.3 C (97.3 F) 12/21/2023 9:18 AM STOCK ANALYST Respiratory Rate 18 12/21/2023 10:20 AM STOCK ANALYST Oxygen Saturation 95% 12/21/2023 10:20 AM STOCK ANALYST Inhaled Oxygen Concentration - - Weight 104.3 kg (230 lb) 12/21/2023 9:18 AM STOCK ANALYST Height 167.6 cm (5' 6) 12/21/2023 9:18 AM STOCK ANALYST Body Mass Index 37.12 12/21/2023 9:18 AM STOCK ANALYST Plan of Treatment Upcoming Encounters Date Type Department Care Team (Late st Contact Info) Description 08/20/2024 9:40 AM CDT Hospital Encounter [facility] [place] [address] [phone] Cleve Deleon, SCIENTIFIC SYSTEMS ANALYST [id number] [place] [address] [phone] (Work) Health Maintenance Due Date Last Done Comments Annual Medicare Wellness Visit 11/09/2008 RSV Immunization or 60+ Years (1 - 1-dose 75+ series) 11/09/2018 Zoster Vaccines (3 of 3) 03/03/2019 01/06/2019, 11/12 DTaP, Tdap and Td Vaccines (2 - Td or Tdap) 01/16/2022 01/17/2012 COVID-19 Vaccine ( season) 2023 12/11/2022, 03/03/2021, 04/29/2020, Additional history exists Pneumococcal Vaccine: 50+ Years Completed 02/22/2017, 11/22/2010 Dexa Scan (General) [...] age to complete this topic Insurance MEDICARE [facility] Care Teams Ball Mill Operator Relationship Specialty Start Date End Date None, Provider, PCP - General UNKNOWN PHYSICIAN SPECIALTY 10/09/23
--- OUTSIDE RECORDS SUMMARY | 2024-08-11 13:53 | XMS_ITS | Data Portability ---
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 She has moderate obesity with BMI of 36.8 but has more severe obesity in the leg itself. The knee replacement itself will be more complex due to the grade 3 valgus deformity and 20 degree flexion contracture which will require constrained implants and there would be some increased risk of peroneal nerve palsy causing footdrop because of her preoperative deformity. She is at some increased risk for infection because of her obesity. My primary concern would be her risk of thromboembolic complications which could be high. 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 She is at high risk for thromboembolic complications and I would recommend that she be evaluated by the exercise specialist at [place] so that a multi disciplinary approach can be used at 1 location. I am going to refer her to Dr. Snyder and Dr. Kasper . I have given her written instructions and she will continue to try to lose weight the meantime. I will see her back as needed. 45 minutes were spent total care this patient more than half the time spent in [id number] care. [email or web address] Not available 01/07/2023 16:47:23 Plan of Treatment Reminders Order Date Submit Date Provider Last Modified By Organization Details Last Modified Time Details Appointments None recorded. Lab TSH, serum or plasma 2023 024 [facility], [address] [place], [address], 4 17:03:25 T4, free, serum [address], [address] [place], [address], 4 08:21:30 CBC w/ auto diff [address], [address] [place], [address], 4 08:37:00 vitamin B12 + folate, serum or blood [address], [address] [place], [address], 4 08:37:00 vitamin D, 25-hydroxy, total, serum 2023 024 [facility], [address] [place], [address], 4 09:48:17 glycohemogl obin, total, blood 2023 024 KEISHA Not available 4 16:31:47 BMP, serum or plasma 2023 024 KEISHA Not available 4 17:13:49 TSH, serum or plasma 2023 024 KEISHA Not available 4 17:25:44 T4, free, serum 2023 024 KEISHA Not available 4 17:20:32 TSH, serum or plasma 2022 023 [email or web address] 4 [facility], [address] [place], [address], 3 14:51:42 Referral pain management referral - Please call patient to schedule an appointment . Thank you. 2023 024 [email or web address] Daysi Payan MD, 3 [facility], [facility] [address], [place], [address], 4 18:21:31 neurologist referral - Please call patient to schedule an appointment . Thank you. 2023 024 [email or web address] [facility], [facility] [facility] [address], [facility] [address], [place], [address], 4 18:20:59 Procedures None recorded. Surgeries None recorded. Imaging XR, knee 2022 023 [email or web address] [facility], [address], [place], [address], 3 09:28:38 Medication Orders Medrol (Chivo) 4 mg tablets in a dose pack 2023 024 [id number], [address], [place], [id number], 4 16:36:16 propranolol ER 60 mg capsule,24 hr,extended release 2023 024 [facility], [address] [place] [address], [address], 4 16:38:20 Nurtec ODT 75 mg disintegrat ing tablet 2023 024 [facility], [address] [place] [address], [address], 4 16:38:18 Ozempic 0.25 mg or 0.5 mg (2 mg/3 mL) subcutaneou s pen injector 2023 024 [email or web address] [facility], [address] [place] [address], [address], 10:00:08 Patient TargetsNo targets recorded. Patient InstructionsNo instructions recorded. Reason for Referral Neurologist Referral for Pete petersen Please call patient to schedule an appointment. Thank you. Referring Physician: Treva Veras [facility], Encounter Date: 08/13/2023 Pain Management Referral for Degeneration of cervical intervertebral disc Please call patient to schedule an appointment. Thank you. Referring Physician: Treva Veras [facility], Encounter Date: 08/13/2023 Results Created Date Observation Date Name Description Value Unit Range Abnormal Flag Note LastModifiedBy Organization Detail LastModifiedTime 12/05/1912/04/2022 CBC/C OMPLE TE BLD COUNT W/DIF F white blood cells 6.3 x10'3 /uL 4.2-10 .8 Not Available [facility] (Lab) [address] [place], [address], 12/04/2022 19:11:41 12/05/1912/04/2022 CBC/C OMPLE TE BLD COUNT W/DIF F red blood cells 4.98 x10'6 /uL 3.80-5 .20 Not Available [facility] (Lab) [address] [place], [address], 12/04/2022 19:11:41 12/05/1912/04/2022 CBC/C OMPLE TE BLD COUNT W/DIF F hemoglobin 14.5 g/dL 12.0-1 5.6 Not Available [facility] (Lab) [address] [place], [address], 12/04/2022 19:11:41 12/05/1912/04/2022 CBC/C OMPLE TE BLD COUNT W/DIF F hematocrit 44.7 % 35.7-4 5.7 Not Available [facility] (Lab) [address] [place], [address], 12/04/2022 19:11:41 12/05/1912/04/2022 CBC/C OMPLE TE BLD COUNT W/DIF F mean red cell volume 89.8 fL 82.0-9 9.0 Not Available [facility] (Lab) [address] [place], [address], 12/04/2022 19:11:41 12/05/1912/04/2022 CBC/C OMPLE TE BLD COUNT W/DIF F mean red cell hemoglobin 29.1 pg 27.0-3 3.0 Not Available [facility] (Lab) [address] [place], [address], 12/04/2022 19:11:41 12/05/1912/04/2022 CBC/C OMPLE TE BLD COUNT W/DIF F mean RBC HGB concentratio n 32.4 g/dL 31.0-3 6.0 Not Available [facility] (Lab) [address] [place], [address], 12/04/2022 19:11:41 12/05/1912/04/2022 CBC/C OMPLE TE BLD COUNT W/DIF F red cell distribution width 14.5 % 11.8-1 5.5 Not Available [facility] (Lab) [address] [place], [address], 12/04/2022 19:11:41 12/05/1912/04/2022 CBC/C OMPLE TE BLD COUNT W/DIF F platelets 216 x10'3 /uL 150-40 0 Not Available [facility] (Lab) [address] [place], [address], 12/04/2022 19:11:41 12/05/1912/04/2022 CBC/C OMPLE TE BLD COUNT W/DIF F mean platelet volume 11.2 fL 9.0-12 .4 Not Available [facility] (Lab) [address] [place], [address], 12/04/2022 19:11:41 12/05/1912/04/2022 CBC/C OMPLE TE BLD COUNT W/DIF F neutrophils 61.1 % 39.0-7 2.0 Not Available [facility] (Lab) [address] [place], [address], 12/04/2022 19:11:41 12/05/1912/04/2022 CBC/C OMPLE TE BLD COUNT W/DIF F lymphocytes 22.9 % 16.0-4 7.0 Not Available [facility] (Lab) [address] [place], [address], 12/04/2022 19:11:41 12/05/1912/04/2022 CBC/C OMPLE TE BLD COUNT W/DIF F monocytes 6.0 % 5.0-12 .0 Not Available [facility] (Lab) [address] [place], [address], 12/04/2022 19:11:41 12/05/1912/04/2022 CBC/C OMPLE TE BLD COUNT W/DIF F eosinophils 8.7 % 1.0-7. 0 high Not Available [facility] (Lab) [address] [place], [address], 12/04/2022 19:11:41 12/05/1912/04/2022 CBC/C OMPLE TE BLD COUNT W/DIF F basophils 0.8 % 0.0-2. 0 Not Available [facility] (Lab) [address] [place], [address], 12/04/2022 19:11:41 12/05/1912/04/2022 CBC/C OMPLE TE BLD COUNT W/DIF F immature granulocytes 0.5 % 0.00-0 .50 Not Available [facility] (Lab) [address] [place], [address], 12/04/2022 19:11:41 12/05/1912/04/2022 CBC/C OMPLE TE BLD COUNT W/DIF F neutrophils, absolute count 3.87 x10'3 /uL 1.5-8. 0 Not Available [facility] (Lab) [address] [place], [address], 12/04/2022 19:11:41 12/05/1912/04/2022 CBC/C OMPLE TE BLD COUNT W/DIF F lymphocytes, absolute count 1.45 x10'3 /uL 1.07-3 .43 Not Available [facility] (Lab) [address] [place], [address], 12/04/2022 19:11:41 12/05/1912/04/2022 CBC/C OMPLE TE BLD COUNT W/DIF F monocytes, absolute count 0.38 x10'3 /uL 0.29-0 .99 Not Available [facility] (Lab) [address] [place], [address], 12/04/2022 19:11:41 12/05/1912/04/2022 CBC/C OMPLE TE BLD COUNT W/DIF F eosinophils, absolute count 0.55 x10'3 /uL 0.02-0 .53 high Not Available [facility] (Lab) [address] [place], [address], 12/04/2022 19:11:41 12/05/1912/04/2022 CBC/C OMPLE TE BLD COUNT W/DIF F basophils, absolute count 0.05 x10'3 /uL 0.01-0 .08 Not Available [facility] (Lab) [address] [place], [address], 12/04/2022 19:11:41 12/05/1912/04/2022 CBC/C OMPLE TE BLD COUNT W/DIF F immature granulocytes ,absolute 0.03 x10'3 /uL 0.00-0 .05 Not Available [facility] (Lab) [address] [place], [address], 12/04/2022 19:11:41 12/05/1912/04/2022 CBC/C OMPLE TE BLD COUNT W/DIF F nucleated red blood cells 0.0 % -0 Not Available [facility] (Lab) [address] [place], [address], 12/04/2022 19:11:41 12/05/1912/04/2022 CBC/C OMPLE TE BLD COUNT W/DIF F NRBC# 0.00 x10'3 /uL Not Available [facility] (Lab) [address] [place], [address], 12/04/2022 19:11:41 12/05/1912/04/2022 BASIC METAB OLIC PANEL sodium 139 mmol/ L 137-14 5 Not Available [facility] (Lab) [address] [place], [address], 12/04/2022 19:32:48 12/05/1912/04/2022 BASIC METAB OLIC PANEL potassium 3.8 mmol/ L 3.5-5. 1 Not Available [facility] (Lab) [address] [place], [address], 12/04/2022 19:32:48 12/05/1912/04/2022 BASIC METAB OLIC PANEL chloride 104 mmol/ L 98-107 Not Available [facility] (Lab) [address] [place], [address], 12/04/2022 19:32:48 12/05/1912/04/2022 BASIC METAB OLIC PANEL carbon dioxide 32 mmol/ L 22-30 high Not Available [facility] (Lab) [address] [place], [address], 12/04/2022 19:32:48 12/05/1912/04/2022 BASIC METAB OLIC PANEL anion gap 6.8 mmol/ L 14-22 low Not Available [facility] (Lab) [address] [place], [address], 12/04/2022 19:32:48 12/05/1912/04/2022 BASIC METAB OLIC PANEL glucose 111 mg/dL 70-99 high Not Available [facility] (Lab) [address] [place], [address], 12/04/2022 19:32:48 12/05/1912/04/2022 BASIC METAB OLIC PANEL BUN 16 mg/dL 8-19 Not Available [facility] (Lab) [address] [place], [address], 12/04/2022 19:32:48 12/05/1912/04/2022 BASIC METAB OLIC PANEL creatinine 0.83 mg/dL 0.66-1 .25 Not Available [facility] (Lab) [address] [place], [address], 12/04/2022 19:32:48 12/05/1912/04/2022 BASIC METAB OLIC PANEL GFR >60 Refer ence Range : [place] GFR Healt hy Adult : >60 mL/mi n/1.7 3 m2 Chron ic Kidne y Disea se: 15-60 mL/mi n/1.7 3 m2 Kidne y Failu re: <15/m L/min /1.73 m2 www.n iddk. nih.g ov The MDRD study equat ion has not been valid ated in child emy <18 years of age; pregn ant women ; the elder ly >85 years of age; or in some racia l or ethni c subgr oups, such as Hispa nics. Outsi de the valid ated ranjit eters , estim ated GFR is less accur ate, requi ring clini edd judgm ent on a case- by-ca se basis . Clini edd inter preta tion for other races and ages must be made by the clini laura. The MDRD study equat ion has not been valid ated for the evalu ation of serum creat inine relat ed to nutri anabel l statu s or medic ation usage . For perso ns <18 years of age, a pedia tric GFR calcu lator is avail able on the [facility] websi te: https ://juni w.kid florentin.o rg/pr ofess ional s/kdo qi/gf r_cal culat or Not Available [facility] (Lab) [address] [place], [address], 12/04/2022 19:32:48 12/05/1912/04/2022 BASIC METAB OLIC PANEL calcium 10.2 mg/dL 8.4-10 .2 Not Available [facility] (Lab) [address] [place], [address], 12/04/2022 19:32:48 12/05/1912/04/2022 LIPID PANEL cholesterol 150 mg/dL 140-19 9 NIH RILEY NSUS RECOM MENDA TION FOR BRO STERO L: ADULT CHILD LOW RISK: <200 <170 BORDE RLINE : <200- 239 ----- HIGH RISK: >240 >200 Not Available [facility] (Lab) [address] [place], [address], 12/04/2022 19:32:51 12/05/1912/04/2022 LIPID PANEL triglyceride s 166 mg/dL 0-150 high NIH RILEY NSUS REPOR T RECOM MENDA TION FOR TRIGL YCERI FABIAN: ADULT CHILD LOW RISK: <150 ----- BODER LINE: 150-1 99 ----- HIGH RISK: >200 ----- Not Available [facility] (Lab) [address] [place], [address], 12/04/2022 19:32:51 12/05/1912/04/2022 LIPID PANEL HDL cholesterol 40 mg/dL 40- Not Available [facility] (Lab) [address] [place], [address], 12/04/2022 19:32:51 12/05/1912/04/2022 LIPID PANEL LDL cholesterol, calculated 77 mg/dL 0-130 NIH RILEY NSUS REPOR T RECOM MENDA TIONS FOR LDL: ADULT CHILD LOW RISK <130 <110 (OPTI MAL LDL) <100 ----- BORDE RLINE : 130-1 59 ----- HIGH RISK: >160 >130 A TRIGL YCERI DE RESUL T >400 INVAL IDATE S THE CALCU LATIO N FOR LDL FRACT IONAT ION - THE LDL RESUL T WILL NOT BE REPOR LANCE. Not Available [facility] (Lab) [address] [place], [address], 12/04/2022 19:32:51 12/05/1912/04/2022 HEPAT IC/LI LASHELL PANEL alkaline phosphatase 51 U/L 38-126 Not Available [facility] (Lab) [address] [place], [address], 12/04/2022 19:32:53 12/05/1912/04/2022 HEPAT IC/LI LASHELL PANEL alanine aminotransfe rase 20 U/L 0-35 Not Available [facility] (Lab) [address] [place], [address], 12/04/2022 19:32:53 12/05/1912/04/2022 HEPAT IC/LI LASHELL PANEL aspartate aminotransfe rase 26 U/L 15-37 Not Available [facility] (Lab) [address] [place], [address], 12/04/2022 19:32:53 12/05/1912/04/2022 HEPAT IC/LI LASHELL PANEL bilirubin, total 0.50 mg/dL 0.20-1 .30 Not Available [facility] (Lab) [address] [place], [address], 12/04/2022 19:32:53 12/05/1912/04/2022 HEPAT IC/LI LASHELL PANEL bilirubin, conjugated (direct) 0.00 mg/dL 0.00-0 .30 Not Available [facility] (Lab) [address] [place], [address], 12/04/2022 19:32:53 12/05/1912/04/2022 HEPAT IC/LI LASHELL PANEL biliurubin,u ncong. (indirect) 0.30 mg/dL 0.00-1 .1 Not Available [facility] (Lab) [address] [place], [address], 12/04/2022 19:32:53 12/05/1912/04/2022 HEPAT IC/LI LASHELL PANEL total protein 6.3 g/dL 6.3-8. 2 Not Available [facility] (Lab) [address] [place], [address], 12/04/2022 19:32:53 12/05/1912/04/2022 HEPAT IC/LI LASHELL PANEL albumin 4.0 g/dL 3.0-4. 4 Not Available [facility] (Lab) [address] [place], [address], 12/04/2022 19:32:53 12/05/1912/04/2022 HEPAT IC/LI LASHELL PANEL globulin 2.3 g/dL 2.6-4. 2 low Not Available [facility] (Lab) [address] [place], [address], 12/04/2022 19:32:53 12/05/1912/04/2022 HEPAT IC/LI LASHELL PANEL A/G ratio 1.7 ratio 1.0-2. 0 Not Available [facility] (Lab) [address] [place], [address], 12/04/2022 19:32:53 12/05/1912/04/2022 T4 FREE free T4 1.83 NG/dL 0.78-2 .19 Not Available [facility] (Lab) [address] [place], [address], 12/04/2022 19:39:12 12/05/1912/04/2022 VITAM IN D 25-HY DROXY [id number] 61.6 NG/mL 30-100 Vitam in D Statu s: Defic ient: <20 ng/mL Insuf ficie nt: 20-29 ng/mL Suffi cient : 30-10 0 ng/mL Not Available Not Available 12/04/2022 19:46:37 12/05/1912/04/2022 TSH thyroid-stim ulating hormone 0.020 uIU/m L 0.465- 4.680 low Not Available [facility] (Lab) [address] [place], [address], 12/04/2022 19:53:08 12/05/1912/04/2022 VITAM IN B12 (ZACHARY ALVA ) vb12 309 pg/mL 239-93 1 Not Available [facility] (Lab) [address] [place], [address], 12/04/2022 20:33:12 12/05/1912/04/2022 FOLAT E, SERUM /PLAS MA folate 5.90 NG/mL 2.76-2 0.0 Not Available [facility] (Lab) [address] [place], [address], 12/04/2022 20:33:17 12/05/1912/06/2022 CALCI UM, IONIZ ED/LC calcium, ionized, serum 5.2 mg/dL 4.5-5. 6 Perfo rmed at: [facility] [address] [facility], [place] [address] [employer] Lab Direc tor: Marv early PhD, Phone : [phone] Not Available [facility] (Lab) [address] [place], [address], 12/06/2022 13:09:36 01/27/2001/26/2023 TSH thyroid-stim ulating hormone 2.590 uIU/m L 0.465- 4.680 Not Available [facility] (Lab) [address] [place], [address], 01/26/2023 21:12:32 04/30/19 24 05/01/2023 HEMOG LOBIN A1C HA1C 5.8 % 4.0-6. 0 Diabe stuart Scree lalit Crite elizabeth: <5.7% Consi stent with absen ce of diabe stuart 5.7-6 .4% Consi stent with incre ased risk for diabe stuart (pred iabet es) >OR=6 .5% Consi stent with diabe stuart REFER ENCE: Diabe stuart Care 2016, 39(Moore ppl.1 ):s13 -s22 Not Available [facility] (Lab) [address] [place], [address], 05/01/2023 16:31:47 04/30/19 24 05/01/2023 BASIC METAB OLIC PANEL sodium 139 mmol/ L 137-14 5 Not Available [facility] (Lab) [address] [place], [address], 05/01/2023 17:13:49 04/30/19 24 05/01/2023 BASIC METAB OLIC PANEL potassium 3.9 mmol/ L 3.5-5. 1 Not Available [facility] (Lab) [address] [place], [address], 05/01/2023 17:13:49 04/30/19 24 05/01/2023 BASIC METAB OLIC PANEL chloride 103 mmol/ L 98-107 Not Available [facility] (Lab) [address] [place], [address], 05/01/2023 17:13:49 04/30/19 24 05/01/2023 BASIC METAB OLIC PANEL carbon dioxide 32 mmol/ L 22-30 high Not Available [facility] (Lab) [address] [place], [address], 05/01/2023 17:13:49 04/30/19 24 05/01/2023 BASIC METAB OLIC PANEL anion gap 7.9 mmol/ L 14-22 low Not Available [facility] (Lab) [address] [place], [address], 05/01/2023 17:13:49 04/30/19 24 05/01/2023 BASIC METAB OLIC PANEL glucose 99 mg/dL 70-99 Not Available [facility] (Lab) [address] [place], [address], 05/01/2023 17:13:49 04/30/19 24 05/01/2023 BASIC METAB OLIC PANEL BUN 15 mg/dL 8-19 Not Available [facility] (Lab) [address] [place], [address], 05/01/2023 17:13:49 04/30/19 24 05/01/2023 BASIC METAB OLIC PANEL creatinine 0.85 mg/dL 0.66-1 .25 Not Available [facility] (Lab) [address] [place], [address], 05/01/2023 17:13:49 04/30/19 24 05/01/2023 BASIC METAB OLIC PANEL GFR >60 Refer ence Range : [place] GFR Healt hy Adult : >60 mL/mi n/1.7 3 m2 Chron ic Kidne y Disea se: 15-60 mL/mi n/1.7 3 m2 Kidne y Failu re: <15/m L/min /1.73 m2 www.n iddk. nih.g ov The MDRD study equat ion has not been valid ated in child emy <18 years of age; pregn ant women ; the elder ly >85 years of age; or in some racia l or ethni c subgr oups, such as Hispa nics. Outsi de the valid ated ranjit eters , estim ated GFR is less accur ate, requi ring clini edd judgm ent on a case- by-ca se basis . Clini edd inter preta tion for other races and ages must be made by the clini laura. The MDRD study equat ion has not been valid ated for the evalu ation of serum creat inine relat ed to nutri anabel l statu s or medic ation usage . For perso ns <18 years of age, a pedia tric GFR calcu lator is avail able on the [facility] websi te: https ://juni meade.shey lerma.o carli/pr ofess ional s/kdo qi/gf r_cal culat or Not Available [facility] (Lab) [address] [place], [address], 05/01/2023 17:13:49 04/30/19 24 05/01/2023 BASIC METAB OLIC PANEL calcium 10.4 mg/dL 8.4-10 .2 high Not Available [facility] (Lab) [address] [place], [address], 05/01/2023 17:13:49 04/30/19 24 05/01/2023 T4 FREE free T4 1.04 NG/dL 0.78-2 .19 Not Available [facility] (Lab) [address] [place], [address], 05/01/2023 17:20:32 04/30/19 24 05/01/2023 TSH thyroid-stim ulating hormone 15.400 uIU/m L 0.465- 4.680 high Not Available [facility] (Lab) [address] [place], [address], 05/01/2023 17:25:43 12/05/19 23 12/04/2022 XR, cervi edd spine [facility] [address] [place] [address] [phone] Patien t Name: KERRI UMANA Access ion #: [id number] Sex: F : 1945 4 Dictat ed By: Kory Bentley Attend ing Physic danyell: PIEDAD TOSCANO Physic danyell: PIEDAD TOSCANO Exam Date: 2022 11:59 AM Exam Name: XR C SPINE 4-5V Admitt ing Diagno sis(es ): INDICA TION: Cervic al spine pain. TECHNI QUE: 6 views of the cervic al spine were obtain ed. COMPAR DANAE: None. FINDIN GS: The cervic al spine is visual ized from C1-C7. There is loss of the normal cervic al lordos is which can be positi onal. No fractu res or sublux ations are identi fied. Advanc ed multil evel degene rative change s of the cervic al spine with sugges tion of multil evel neural forami nal stenos is. Alignm ent appear s unrema rkable . Prever tebral soft tissue s are within normal limits . IMPRES ARIANA: Multil evel degene rative change s of the spine. Electr onical ly Signed by: Kory Bentley at 2022 16:36: 01 PM Page 1 [id number] [facility] ([facility] Scheduling) [address] [place], [address], 12/05/2022 11:26:26 12/13/1912/12/2022 MRI, brain + brain stem, w/wo contr ast [facility] [address] [facility] [place] [address] [phone] Patien t Name: KERRI UMANA Access ion #: [id number] Sex: F : 1945 5 Dictat ed By: Jos Crum Attend ing Physic danyell: , Arlette mora Physic danyell: PIEDAD TOSCANO Exam Date: Exam Name: MRI BRAIN W/WO Admitt ing Diagno sis(es ): STUDY: MRI BRAIN WITH AND WITHOU T IV CONTRA ST INDICA TION: Histor y of headac he and pain in the left occipi jordana region . TECHNI QUE: MRI of the brain was conduc lance both pre and post intrav enous contra st admini strati on. Standa rd protoc ol sequen angelica, includ ing Axial and Sagitt al T1, FLAIR, and T2 in axial, sagitt al, and cleary l planes , were acquir ed. Gadoli nium-b ased contra st was used withou t any advers e reacti on. FINDIN GS: Cerebr al Parenc hyma: Multip le non-sp ecific hyperi ntense foci on T2/FLA IR sequen angelica are observ ed in the perive ntricu lar and subcor tical deep white matter . No eviden ce of intrac ranial hemorr daysi, mass, or mass effect . Extra- Axial Spaces : They appear normal for the patien t's age with no extra- axial fluid collec tions. Ventri cular System and Basal Cister ns: Ventri cular size and morpho logy are consis tent with the patien t's age. Basal cister ns are patent and unrema rkable . Settlement Technician ior Fossa: Intact brains tem and cerebe llum withou t abnorm alitie s. Absenc e of masses in the cerebe llopon sandra angle. Post-C ontras t Imagin g: No eviden ce of enhanc ing masses or leptom eninge al enhanc ement. Vascul ar System : Normal arteri al struct ures and dural sinus flow voids. Orbits and Parana jakub Sinuse s: The orbits are devoid of pathol ogy. Clear parana jakub sinuse s. Page 1 [facility] [address] [place] [address] Patimarisabel t Name: KERRI UMANA Access ion #: [id number] Sex: F : 1945 5 Dictat ed By: Jos Crum Attend ing Physic danyell: , Arlette mora Physic danyell: TRACIEElieser Deras DAPHNEYSTEPH Rhea Exam Date: 2022 06:54 AM Exam Name: MRI BRAIN W/WO Admitt ing Diagno sis(es ): IMPRES ARIAAN: 1. No eviden ce of an acute intrac ranial proces s. Clinic al follow -up is recomm ended. 2. Non-sp ecific hyperi ntense foci in the perive ntricu lar white matter seen on T2/FLA IR images , the signif icance of which is uncert ain. These could repres ent change s seen in patien ts with migrai gabriel, a demyel inatin g proces s, or other non-sp ecific findin gs. Clinic al correl ation and potent ial follow -up are recomm ended. 3. Findin gs consis tent with age-re lated cerebr al atroph y. Electr onical ly Signed by: Jos Crum at 2022 08:52: 23 AM Signat ure Date/T kathie: 2022 8:[address] [facility] ([facility]) [address], [place], [address], 12/15/2022 15:36:47 12/15/19 23 XR, knee No observ ation record ed. [email or web address] s_[facility] [address] [facility], [place], [address], 01/07/2023 16:43:41 02/27/19 24 02/27/2023 MAMMO , scree lalit, tomos ynthe sis, unila teral No observ ation record ed. [email or web address] [facility] [address] [facility], [place], [address], 06/24/2023 15:25:53 07/04/19 24 07/04/2023 US, doppl er echoc ardio gram No observ ation record ed. [email or web address] [facility] [address], [place], [address], 07/04/2023 14:57:57 07/04/19 24 07/04/2023 US, echoc ardio gram No observ ation record ed. [email or web address] [facility] [address], [place], [address], 07/09/2023 10:39:22 09/10/19 24 09/10/2023 MRI, cervi edd spine , w/o contr ast No observ ation record ed. [facility] [address], [place], [address], 09/11/2023 10:33:50 Result Notes None recorded. Problems Name Problem SNOMED Code Status Onset Date Resolution Date Notes Provider Name and Address Organization Details Recorded Time Decreased hearing 315560040 Active 2022 Not Available [facility] 3 12:12:14 Cramp in lower limb 796748631 Active 2022 Not Available [facility] 3 12:12:14 Fatigue 90401658 Active 2022 Not Available [facility] 3 12:12:14 Carcinoma of breast 862595419 Active 2022 Cori Potter MD [address], [place], [address] , [employer] [facility] [employer] 3 11:44:17 Unintenti onal weight loss 501032295 Active 2022 Cori Potter MD [address] [address], [place], [address] , [employer] [facility] [employer] [facility] 3 11:49:37 Cobalamin deficienc y 136046029 Active 2022 Cori Potter MD [address], [place], [address] , [employer] [facility] [employer] [facility] 3 11:50:45 Headache 13631895 Active 2022 Cori Potter MD [address], [place], [address] , [employer] [facility] [employer] [facility] 3 11:54:55 Pain of right knee joint 87938210252 4100 Active 2022 Cori Potter MD [address], [place], [address] , [facility] [employer] [facility] 3 11:56:06 Coronary arteriosc lerosis 97444557 Active 2023 Cori Potter MD [address], [place], [address] , [employer] [facility] [employer] [facility] 4 10:01:47 Malaise and fatigue 339171711 Active 2023 BRONSON lCay [address], [place], [address] , [employer] [facility] [employer] [facility] 4 10:23:42 Degenerat ion of cervical intervert ebral disc 44201020 Active 2023 BRONSON Clay [address], [place], [address] , [employer] [facility] [employer] [facility] 4 16:28:10 Migraine 54298383 Active 2023 BRONSON Clay [address], [address] [address], [place], [address] , [employer] [facility] [employer] [facility] 4 16:37:19 Hammer toe 474986524 Active 2022 Not Available [facility] 3 12:12:14 Density outside reference range 053937619 Completed Not Available [facility] 3 04:49:19 Deep venous thrombosi s 402367563 Active Not Available [facility] 3 12:12:14 Complaini ng of - low back pain Completed Not Available [facility] 3 04:49:19 Flexion contractu re of toe interphal angeal joint 275935253 Active 2022 Not Available [facility] 3 12:12:14 Abdominal pain 54334939 Completed Not Available [facility] 3 04:49:19 Osteoarth ritis of knee 773685290 Active 2021 Not Available [facility] 3 12:12:14 Carcinoma of breast 439002748 Active Not Available [facility] 3 12:12:14 Abdominal mass 334138450 Completed Not Available [facility] 3 04:49:19 Low back pain 585929562 Completed Not Available [facility] 3 04:49:20 Pain in toe 695290907 Active 2022 Not Available [facility] 3 12:12:14 Knee pain Completed Not Available [facility] 3 04:49:20 Vitamin D deficienc y 75675005 Active Not Available [facility] 3 12:12:14 Malignant tumor of thyroid gland 210835244 Active 2022 Not Available [facility] 3 12:12:14 Chemother apy Active 2022 Not Available [facility] 3 12:12:14 Disorder of eye 449122028 Active 2022 Not Available [facility] 3 12:12:14 Osteoarth ritis 631349160 Active Not Available [facility] 3 12:12:14 Onychomyc osis of toenails 688885411 Active 2022 Not Available [facility] 3 12:12:14 Pharyngit is 325230137 Completed Not Available [facility] 3 04:49:21 Hypothyro idism 96885570 Active Not Available [facility] 3 12:12:14 Obesity 905846793 Active 2022 Not Available [facility] 3 12:12:14 Nausea 006058797 Completed Not Available [facility] 3 04:49:21 Lindrith of toe 37520848 Active 2022 Not Available [facility] 3 12:12:14 Upper respirato ry infection 28900695 Completed Not Available [facility] 3 04:49:21 Hyperlipi demia 26947347 Active Not Available [facility] 3 12:12:14 Heart disease 23829434 Active 2022 Not Available [facility] 3 12:12:14 Pulmonary embolism 39594455 Active Not Available [facility] 3 12:12:14 Essential hypertens ion 72952191 Active Not Available [facility] 3 12:12:14 Allergic rhinitis 56918647 Active Not Available [facility] 3 12:12:14 Otitis media 77932081 Completed Not Available [facility] 3 04:49:22 Hypercalc emia 68918777 Active Not Available [facility] 3 12:12:14 Breast lump 72360497 Completed Not Available [facility] 3 04:49:22 Conjuncti vitis 9094865 Completed Not Available [facility] 3 04:49:22 Notes:USE OF BLOOD THINNERS Problem Notes None recorded. Procedures Surgical History Date Name Laterality Status Provider Name and Address Organization Details Recorded Time 02/27/19 24 Most Recent Mammogram completed Goldie Vila LPN [place] [employer] [facility] [employer] 03/01/2023 16:00:59 12/05/19 23 Medicare Wellness CPT Code, subsequent completed Aparna Begum RN [employer] 12/04/2022 11:18:20 Breast Surgery completed Not Available [facility] 04/12/2022 04:42:13 Thyroid Surgery completed Not Available [facility] 04/12/2022 04:42:13 Eye Surgery completed Not Available [facility] 04/12/2022 04:42:13 Tubal Ligation completed Not Available [facility] 04/12/2022 04:42:13 Cholecystectomy completed Not Available [facility] 04/12/2022 04:42:13 Colonoscopy completed Not Available [facility] 04/12/2022 04:42:13 Imaging Results None recorded. Procedure Notes None recorded. Medical Equipment None Reported. Allergies Allergen ID Allergen Name Allergen Category Reaction Reaction Severity Criticality Documentation Date Start Date Code Code System Note Provider Name and Address Organization Details Recorded Time 7232 Substance with morphinan structure and opioid receptor agonist mechanism of action (substanc e) medicatio n Not available Not available Not available 04/12/2022 75149 9000 SNOMED Not Available [facility] 3 04:58:35 7233 codeine medicatio n Not available Not available Not available 04/12/2022 2670 RxNorm Not Available [facility] 3 04:58:35 7234 Pneumovax 23 medicatio n Not available Not available Not available 04/12/2022 04158 3 RxNorm Not Available [facility] 3 04:58:35 7235 amoxicill in medicatio n Not available Not available Not available 04/12/2022 723 RxNorm Not Available [facility] 3 04:58:35 Medications Name Sig Start Date Stop Date Status Note LastModified by Organization Details LastModified Time Prescript ion - Renewal active Not Available Not Available Not Available Prescript ion - Prior Authoriza tion Request 06/12 completed Not Available Not Available Not Available amoxicill in 500 mg capsule 11/18 completed Not Available Not Available Not Available levothyro xine 175 mcg tablet TAKE 1 TABLET DAILY 12/05 completed Not Available Not Available Not Available ketoconaz ole 2 % shampoo APPLY TO THE AFFECTED AREA(S), LATHER, LEAVE IN PLACE FOR 5 MINUTES, AND THEN RINSE OFF WITH WATER BY TOPICAL ROUTE ONCE DAILY 12/09 completed Not Available Not Available Not Available clindamyc in HCl 300 mg capsule 11/18 completed Not Available Not Available Not Available fluconazo le 150 mg tablet 03/14 completed Not Available Not Available Not Available benzonata te 200 mg capsule Take 1 capsule 3 times a day by oral route for 10 days. active Not Available Not Available No t Available ampicilli n 500 mg capsule 11/18 completed Not Available Not Available Not Available Synthroid 150 mcg tablet TAKE 1 TABLET DAILY active Not Available Not Available No t Available fluconazo le 200 mg tablet Take 1 tablet as needed by oral route. 01/14 completed weekly Not Available Not Available Not Available meloxicam 15 mg tablet Take 1 tablet every day by oral route. 11/19 completed Not Available Not Available Not Available Synthroid 125 mcg tablet TAKE 1 TABLET DAILY 06/28 completed Not Available Not Available Not Available lovastati n 40 mg tablet TAKE 1 TABLET DAILY active Not Available Not Available No t Available propranol ol ER 60 mg capsule,2 4 hr,extend ed release Take 1 capsule every day by oral route as directed for 90 days. active Not Available Not Available No t Available Zithromax Z-Chivo 250 mg tablet Take 2 TABLET EVERY DAY by oral route for 1 day then take 1 daily for 4 days 01/14 completed Not Available Not Available Not Available Herceptin 440 mg intraveno us solution Inject every 3 weeks by intraven ous route as directed . 2013 active Not Available Not Available Not Avai lable tramadol 50 mg tablet Take 1 tablet every day by oral route as needed for 30 days. 02/23 completed Not Available Not Available Not Available TobraDex 0.3 %-0.1 % eye ointment 03/14 completed Not Available Not Available Not Available Depo-Medr ol 80 mg/mL suspensio n for injection 05/20 completed Not Available Not Available Not Available potassium chloride ER 20 mEq tablet,ex tended release(p art/cryst ) 06/28 completed Not Available Not Available Not Available prednisol one acetate 1 % eye drops,glenna pension Instill 1 drop twice a day by ophthalm ic route. 06/22 completed after FML is done she will use this in Both eyes Not Available Not Available Not Available exemestan e 25 mg tablet TAKE 1 TABLET DAILY DIRECTED 01/06 completed Not Available Not Available Not Available cephalexi n 500 mg capsule 11/29 completed Not Available Not Available Not Available fluoromet holone 0.1 % eye drops,glenna pension active Not Available Not Available Not Available hydrochlo rothiazid e 12.5 mg capsule TAKE 1 CAPSULE DAILY DIRECTED 01/06 completed Not Available Not Available Not Available omeprazol e 20 mg capsule,d elayed release Take 1 capsule every day by oral route for 90 days. 12/14 completed Not Available Not Available Not Available aspirin 81 mg chewable tablet Chew 1 tablet every day by oral route. 11/19 completed Not Available Not Available Not Available amoxicill in 250 mg capsule TK ONE C PO TID active Not Available Not Available No t Available hydroxyzi ne HCl 25 mg tablet Take 1 tablet 3 times a day by oral route as needed for 10 days. active Not Available Not Available No t Available levothyro xine 200 mcg tablet Take 1 tablet every day by oral route. active Not Available Not Available No t Available furosemid e 20 mg tablet TAKE 1 TABLET BY MOUTH EVERY DAY 06/28 completed Not Available Not Available Not Available Levaquin 500 mg tablet Take 1 tablet every 24 hours by oral route for 10 days. 05/23 completed Not Available Not Available Not Available metoprolo l succinate ER 25 mg tablet,ex tended release 24 hr TAKE 1 TABLET BY MOUTH EVERY DAY AT NIGHT 08/12 completed Not Available Not Available Not Available ergocalci ferol (vitamin D2) 1,250 mcg (50,000 unit) capsule TAKE 1 CAPSULE EVERY WEEK active Not Available Not Available No t Available lovastati n 20 mg tablet TAKE 1 TABLET DAILY 01/18 completed Taking 40mg Not Available Not Available Not Available methylpre dnisolone 4 mg tablets in a dose pack FOLLOW PACKAGE DIRECTIO NS active Not Available Not Available No t Available fluticaso ne propionat e 50 mcg/actua tion nasal spray,glenna pension Inhale 2 sprays every day by intranas al route. 03/14 completed Not Available Not Available Not Available Lotemax 0.5 % eye drops,glenna pension Instill 1 drop 4 times a day by ophthalm ic route for 90 days. 2012 active 1 drop daily Not Available Not Available Not Available amoxicill in 875 mg-potass ium clavulana te 125 mg tablet Take 1 tablet every 12 hours by oral route for 10 days. 12/22 completed Not Available Not Available Not Available Tylenol Extra Strength 500 mg tablet Take 2 tablets every day by oral route. 05/20 completed Not Available Not Available Not Available tobramyci n 0.3 %-dexamet hasone 0.1 % eye drops,glenna pension 03/14 completed Not Available Not Available Not Available Synthroid 137 mcg tablet Take 1 tablet every day by oral route. active Not Available Not Available No t Available cyclobenz aprine 5 mg tablet Take 1 tablet twice a day by oral route. active Not Available Not Available No t Available nitrofura ntoin monohydra te/macroc rystals 100 mg capsule 03/14 completed Not Available Not Available Not Available ibandrona te 150 mg tablet active Not Available Not Available Not Available amoxicill in 875very mg 1 tab every 12 hrs. 01/14 completed Not Available Not Available Not Available anastrozo le 01/14 completed Internal note: 1 x dailyExt ernal note: temporai ly taken off this medicine Not Available Not Available Not Available omeprazol e 02/23 completed Not Available Not Available Not Available biotin 10,000 mcg 1 tab. daily 01/14 completed Not Available Not Available Not Available F[employer] Liquifilm 1 DROP IN LEFT EYE DAILY 03/14 completed Not Available Not Available Not Available Suprep Bowel Prep Kit 17.5 gram-3.13 gram-1.6 gram oral solution active Not Available Not Available Not Available Vandana Allergy 180 mg tablet Take 1 tablet every day by oral route. active Not Available Not Available No t Available Xarelto 15 mg tablet active Not Available Not Available Not Available Xarelto 20 mg tablet TAKE 1 TABLET DAILY active Not Available Not Available No t Available Trulicity 0.75 mg/0.5 mL subcutane ous pen injector INJECT 0.5 ML UNDER THE SKIN EVERY WEEK 06/28 completed Not Available Not Available Not Available Shingrix (PF) 50 mcg/0.5 mL intramusc ular suspensio n, kit 12/14 completed Not Available Not Available Not Available [facility] ODT 75 mg disintegr ating tablet active Not Available Not Available Not Available Ozempic 0.25 mg or 0.5 mg (2 mg/3 mL) subcutane ous pen injector 0.25 mg sc qweek 06/12 completed Not Available Not Available Not Available Vitals Date Recorded Body height Body mass index (BMI) Body weight Body temperature Heart rate Oxygen saturation Oxygen saturation in Arterial blood by Pulse oximetry Systolic blood pressure Diastolic blood pressure Provider Name and Address Organization Details Last Updated DateTime 4 165.1 cm 38.6 kg/m2 255457. 43 g 97.3 [degF] 66 /min 96 % 96 % 142 mm[Hg] 80 mm[Hg] Aparna Begum RN [place] [employer] [facility] 4 09:54:29 Date Recorded Body height Body mass index (BMI) Body weight Body temperature Heart rate Respiratory rate Oxygen saturation Oxygen saturation in Arterial blood by Pulse oximetry Systolic blood pressure Diastolic blood pressure Provider Name and Address Organization Details Last Updated DateTime 4 165.1 cm 38.5 kg/m2 429614. 89 g 96.8 [degF] 59 /min 20 /min 96 % 96 % 126 mm[Hg] 70 mm[Hg] Jasmine Silver RN [facility] [employer] [facility] 4 10:08:59 Date Recorded Body height Body mass index (BMI) Body weight Body temperature Heart rate Respiratory rate Oxygen saturation Oxygen saturation in Arterial blood by Pulse oximetry Systolic blood pressure Diastolic blood pressure Provider Name and Address Organization Details Last Updated DateTime 4 165.1 cm 38.6 kg/m2 178234. 43 g 97.4 [degF] 64 /min 20 /min 98 % 98 % 156 mm[Hg] 102 mm[Hg] Jasmine Silver RN [facility] [employer] [facility] 4 16:17:47 Date Recorded Body height Body mass index (BMI) Body weight Provider Name and Address Organization Details Last Updated DateTime 12/14/2022 165.1 cm 36.8 kg/m2 742046.91 g NGOC De León [facility] [employer] [facility] 12/14/2022 12:12:48 Date Recorded Body temperature Provider Name a tn Address Organization Details Last Updated DateTime 01/26/2023 97.6 [degF] Cori Potter MD [address] [place] [address], [address], [facility] [employer] [facility] 01/26/2023 10:29:55 Date Recorded Body height Body mass index (BMI) Body weight Heart rate Oxygen saturation Oxygen saturation in Arterial blood by Pulse oximetry Systolic blood pressure Diastolic blood pressure Provider Name and Address Organization Details Last Updated DateTime 3 165.1 cm 36.8 kg/m2 986374. 96 g 69 /min 98 % 98 % 112 mm[Hg] 72 mm[Hg] Mirlande Nance LPN [facility] [employer] [facility] 3 10:14:13 Social History Question Answer Notes LastModified by Organizat ion Details LastModified Time Tobacco Smoking Status Never Smoker Not Available [facility] 04/12/2022 04:11:04 Are You Blind Or Do You Have Difficulty Seeing? No Information not available 06/29/2023 What Is Your Level Of Caffeine Consumption? Occasional [id number] Information not available 04/12/2022 In The 14 Days Before Symptom Onset, Have You Had Close Contact With A Laboratory-confir med COVID-19 While That Case Was Ill? No [id number] Information not available 04/12/2022 In The 14 Days Before Symptom Onset, Have You Had Close Contact With A Person Who Is Under Investigation For COVID-19 While That Person Was Ill? No [id number] Information not available 04/12/2022 Are You Deaf Or Do You Have Serious Difficulty Hearing? Yes Information not available 06/29/2023 What Type Of Diet Are You Following? REGULAR [id number] Information not available 04/12/2022 Which Illicit Or Recreational Drugs Have You Used? None [id number] Information not available 04/12/2022 Have There Been Any Changes To Your Family Or Social Situation? No Information no t available 06/29/2023 Do You Use Insect Repellent Routinely? No Information not available 06/29/2023 Where Do You Live? SingleLevelHouse Information not available 06/29/2023 Advance Directive- Providers Has Reviewed Directive And Consents To Follow Them (insert Provider Name With Any Objectives In Notes Field) No Information not available 06/29/2023 Presence Of Domestic Violence No Information no t available 06/29/2023 Guns Present In The Home? Yes Information not available 06/29/2023 Are You Able To Care For Yourself? Yes Information not available 06/29/2023 Are You Blind Or Do Yo Have Difficulty Seeing? No Information not available 06/29/2023 Are You Deaf Or Do You Have Serious Difficulty Hearing? Yes Information not available 06/29/2023 General Stress Level? Moderate Information not available 06/29/2023 Live Alone Of With Others? With Others Information not available 06/29/2023 What Was The Date Of Your Most Recent Tobacco Screening? 12/04/2022 [email or web address] Information not available 12/04/2022 Do You Have Any Pets? Yes Information not available 06/29/2023 What Is Your Relationship Status? Information not available 06/29/2023 Do You Use Your Seat Belt Or Car Seat Routinely? Yes Information not available 06/29/2023 Do You Have Smoke And Carbon Monoxide Detectors In Your Home? No Information not available 06/29/2023 Are You Passively Exposed To Smoke? No Information no t available 06/29/2023 Are There Any Smokers In Your House? No Information not available 06/29/2023 Do You Participate In Social Media? No Information not available 06/29/2023 Do You Use Sunscreen Routinely? No Information not available 06/29/2023 Has Tobacco Cessation Counseling Been Provided? No [id number] Information not available 04/12/2022 Have You Recently Traveled Abroad? No [id number].[id number] Information not available 04/12/2022 Do You Have Difficulty Walking Or Climbing Stairs? Yes Information not available 06/29/2023 Do You Have Any Dietary Restrictions? No [id number].34610 [id number] Information not available 04/12/2022 Sex: Unknown Functional Status Question Answer Note LastModified by Organizat ion Details LastModified Time Do you use any illicit or recreational drugs? No [id number] Information not available 04/12/2022 Do you or have you ever used any other forms of tobacco or nicotine? No [id number].[id number] Information not available 04/12/2022 What is your level of alcohol consumption? None MIGRATION.[id number] Information not available 04/12/2022 Do you have transportation difficulties? No Information not available 06/29/2023 Are you able to walk? YESWOREST Information not available 06/29/2023 Are you able to care for yourself? Yes Information n ot available 06/29/2023 What is your occupation? Retired [id number] Information not available 04/12/2022 Do you have difficulty dressing or bathing? No Information not available 06/29/2023 Do you or have you ever used e-cigarettes or vape? Never used electronic cigarettes MIGRATION.[id number] Information not available 04/12/2022 What is your exercise level? Occasional MIGRATION.[id number] Information not available 04/12/2022 Mental Status Question Answer Note LastModified by Organizat ion Details LastModified Time Do you feel stressed (tense, restless, nervous, or anxious, or unable to sleep at night)? [id number] Information not available 06/29/2023 Do you have difficulty concentrating, remembering or making decisions? Yes Information no t available 06/29/2023 Family History Relationship Description Onset Age of this Age Resolved Age Notes LastModified by Organization Details LastModified Time Father Myocardial infarction MIGRATION.[id number] Not available 04/12/2022 04:42:15 Father Kidney disease MIGRATION.560 [id number] Not available 04/12/2022 04:42:15 Father Heart disease MIGRATION.199 [id number] Not available 04/12/2022 04:42:15 Mother Myocardial infarction MIGRATION.296 [id number] Not available 04/12/2022 04:42:15 Mother Diabetes mellitus MIGRATION.466 [id number] Not available 04/12/2022 04:42:15 Mother Hypertensive disorder MIGRATION.420 [id number] Not available 04/12/2022 04:42:15 Mother Arthritis MIGRATION.669 [id number] Not available 04/12/2022 04:42:15 Mother Heart disease MIGRATION.318 [id number] Not available 04/12/2022 04:42:15 Maternal Grandfather Gout MIGRATION.216 [id number] Not available 04/12/2022 04:42:15 Maternal Grandfather Alcoholism MIGRATION.324 [id number] Not available 04/12/2022 04:42:15 Son Alcoholism MIGRATION.636 [id number] Not available 04/12/2022 04:42:15 Daughter Alcoholism MIGRATION.03 0 [id number] Not available 04/12/2022 04:42:15 Daughter Diabetes mellitus MIGRATION.160 [id number] Not available 04/12/2022 04:42:15 Paternal Aunt Malignant tumor of breast x2 MIGRATION.050 [id number] Not available 04/12/2022 04:42:15 Paternal Aunt Parkinson's disease MIGRATION.777 [id number] Not available 04/12/2022 04:42:15 Brother Diabetes mellitus MIGRATION.889 [id number] Not available 04/12/2022 04:42:15 Brother Heart disease [id number] Not available 04/12/2022 04:42:15 Maternal Grandmother Diabetes mellitus [id number] Not available 04/12/2022 04:42:15 Unspecified Relation Family history of malignant neoplasm 2 AUNTS [id number] Not available 04/12/2022 04:42:16 Medical History Condition Response THYROID DISEASE Y ARTHRITIS Y HEADACHES/MIGRAINES Y USE OF BLOOD THINNERS Y HEART DISEASE/HEART PROBLEMS Y ALLERGIES/HAYFEVER Y LUNG DISEASE/DISORDER Y HYPERTENSION Y EYE PROBLEMS Y CANCER: SPECIFY Y OBESITY Y BLOOD CLOTS Y ANEMIA/BLOOD DISORDER Y URINARY/BLADDER/KIDNEY PROBLEMS Y BOWEL PROBLEMS Y BACK / NECK PROBLEMS Y Gynecological History Statement/Question Response Most Recent Mammogram 02/27/2023 Obstetrics History GPAL:G 0 P 0 0 0 0 Immunizations Vaccine Type Date Status Note Provider Nam e and Address Organization Details Recorded Time COVID-19, mRNA, LNP-S, PF, 30 mcg/0.3 mL dose 1 completed BRONSON Clay [address], [place], [address], [facility] [employer] [facility] 08/13/2023 16:15:43 COVID-19, mRNA, LNP-S, PF, 30 mcg/0.3 mL dose 1 completed BRONSON Clay [address], [place], [address], [facility] [employer] [facility] 08/13/2023 16:15:43 COVID-19, mRNA, LNP-S, PF, 30 mcg/0.3 mL dose, vera-sucrose 2 completed BRONSON Clay [address], [place], [address], [facility] [employer] [facility] 08/13/2023 16:15:43 COVID-19, mRNA, LNP-S, PF, 50 mcg/0.5 mL 3 completed BRONSON Clay [address], [address], [place], [address], [facility] [employer] [facility] 08/13/2023 16:16:07 COVID-19, mRNA, LNP-S, PF, 100 mcg/0.5mL dose or 50 mcg/0.25mL dose 1 completed BRONSON Clay [address], [place], [address], [facility] [employer] [facility] 08/13/2023 16:15:43 COVID-19, mRNA, LNP-S, PF, 100 mcg/0.5mL dose or 50 mcg/0.25mL dose 1 completed BRONSON Clay [address], [place], [address], [facility] [employer] [facility] 08/13/2023 16:15:43 Influenza, split virus, quadrivalent, preservative 8 completed Not Available [facility] 08/07/2022 12:12:15 Influenza, split virus, quadrivalent, preservative 8 completed Not Available [facility] 08/07/2022 12:12:15 influenza, unspecified formulation 6 completed Not Available [facility] 08/07/2022 12:12:15 Tdap 2 completed Not Available [facility] 08/07/2022 12:12:15 pneumococcal polysaccharide PPV23 1 completed Not Available [facility] 08/07/2022 12:12:15 zoster live 1 completed BRONSON Clay [address], [place], [address], [facility] [employer] [facility] 08/13/2023 16:15:43 Influenza, high-dose, quadrivalent, PF 2 completed Not Available [facility] 08/07/2022 12:12:15 Influenza, high-dose, quadrivalent, PF 1 completed Not Available [facility] 08/07/2022 12:12:15 Influenza, high-dose, quadrivalent, PF 0 completed Not Available [facility] 08/07/2022 12:12:15 Influenza, high-dose, trivalent, PF 9 completed Not Available [facility] 08/07/2022 12:12:15 zoster recombinant 9 completed Not Available [facility] 08/07/2022 12:12:15 Pneumococcal conjugate PCV 13 8 completed BRONSON Clay [address] [facility], [facility] [address], [place], [address], [facility] [employer] 08/13/2023 16:15:43 Influenza, high-dose, trivalent, PF 8 completed Not Available [facility] 08/07/2022 12:12:15 Influenza, high-dose, trivalent, PF 6 completed Not Available [facility] 08/07/2022 12:12:15 Influenza, high-dose, trivalent, PF 5 completed Not Available [facility] 08/07/2022 12:12:15 Influenza, high-dose, trivalent, PF 4 completed Not Available [facility] 08/07/2022 12:12:15 Influenza, high-dose, quadrivalent, PF 3 completed Aparna Begum RN [place] [employer] [facility] [employer] 12/04/2022 15:19:39 Past Encounters Encounter ID Performer Location Encounter Start Date Encounter Closed Date Diagnosis/Indication Diagnosis SNOMED-CT Code Diagnosis ICD10 Code Diagnosis Note [id number] [facility] [place] [address] [place] [address] 06/09/2020 00:00:00 06/09/2020 11:51:30 [id number] [facility] _ATHENA_M IGRATION_ DEFAULT_1 _1 , 07/22/2020 00:00:00 07/22/2020 14:42:15 [id number] Gurdeep Huang MD [place] [address], [place] [address] 11/18/2020 00:00:00 11/18/2020 15:23:13 [id number] Gurdeep Huang MD [facility] [address] [place] [address] 12/22/2020 00:00:00 12/22/2020 12:24:06 [id number] Gurdeep Huang MD [facility] [address] [place] [address] [place] [address] 06/08/2021 00:00:00 06/08/2021 11:59:00 [id number] Gurdeep Huang MD [facility] [address] [place] [address] 12/26/2021 00:00:00 12/26/2021 10:46:22 [id number] Gagandeep Pate DPM [facility] [place] [address] [facility] [address] [place] [address] 02/23/2022 00:00:00 02/23/2022 11:31:43 [id number] Gagandeep Pate DPM [facility] [place] [place] [address] [place] [address] 02/27/2022 00:00:00 02/27/2022 09:52:53 [id number] Gagandeep Pate DPM [facility] Podiat[facility] [place] [address] [address] [place] [address] 04/03/2022 00:00:00 04/03/2022 09:55:26 [id number] Cori Potter MD [facility] Primary Care [facility] [address] [facility] [address] [place] [address] 06/05/2022 09:50:05 06/05/2022 11:51:49 Decreased hearing 926893918 H91.93 Essential hypertension 46894386 I10 Hyperlipidemia 79203266 E78.5 Z79.899 Hypothyroidism 13687902 E03.9 Cramp in lower limb 4499 88457 R25.2 Vitamin D deficiency 347 65693 E55.9 Fatigue 80137180 R53.83 D64.9 E53.8 [id number] Cori Potter MD [facility] Freda leon[facility] [address] [facility] [address] [place] [address] 12/04/2022 11:15:43 12/04/2022 12:16:25 Adult health examination 257737220 Z00.[address] Berg for mammogram/ breast exam yearly ([facility])C olonoscopy done 2011, no further needed due to ageNo cervical cancer screen neededChe k fasting labsGets DEXA done at [facility] with her mammograms Recommend flu vaccine, covid vaccineHas completed prevnar 13 and pneumovax 23Complete shingrix series Screening for disorder 650744590 Z13.9 Carcinoma of breast 2548 93337 C50.912 sees breast specialist at [facility] yearly Dr. Berg Essential hypertension 59008950 I10 [facility] Hypothyroidism 67401919 E03.9 check labs Hyperlipidemia 43916474 E78.5 Z79.899 [facility] Hypercalcemia 62310575 E 83.52 Pulmonary embolism 59826 003 I26.99 stableon xarelto Vitamin D deficiency 347 91995 E55.9 Malignant tumor of thyroid gland 941556763 C73 s/p thyroidect latasha Heart disease 05195320 I 51.9 [facility] Unintentio nal weight loss 094728958 R63.4 check labs as abovef/u in 6 weeks Cobalamin deficiency 190 047714 E53.8 Headache 24312156 R51.9 M54.2 will check xray cervical spinepersi stent x 1 year, almost constantha s had 20 pounds weight lossh/o breast and thyroid cancerchec k MRI brain Pain of ri ght knee joint 6042873764 00297 M25.561 referral given Administra tion of influenza vaccine 82689337 Z23 [id number] Damon Fraire MD [facility] [address] [address] 12/14/2022 10:59:13 01/08/2023 09:28:38 Pain of right knee joint 3973915340 61096 M25.306 [id number] Cori Potter MD [facility] Primary Care [facility] [address] [facility] [address] [place] [address] 01/26/2023 10:06:33 01/26/2023 10:43:00 Hypothyroidism 29585507 E03.9 no further unintentio nal weight loss and overall feels better on lower dose levothyrox inecontinu e levothyrox ine 125 mcg dailyrepea t TSH, goal is maintain TSH between 0.5 and 4.5 [id number] Cori Potter MD [facility] Primary Care [facility] [address] [facility] [address] [place] [address] 04/30/2023 09:49:54 04/30/2023 10:20:26 Hypothyroidism 82271059 E03.9 no further unintentio nal weight loss and overall feels better on lower dose levothyrox inecontinu e levothyrox ine 125 mcg dailyrepea t TSH, goal is maintain TSH between 0.5 and 4.5 Coronary arteriosclerosis 41934056 I25.10 R73.9 trial of ozempic 0.25 mg sc qweek to reduce cardiovasc ular riskhas h/o CAD proven with cardiac cathf/u in 6 weeks [id number] Benton Mcghee MD [address] [address] 06/29/2023 09:58:58 06/29/2023 10:40:43 Malaise and fatigue 426070685 R53.81 [id number] Benton Mcghee MD [address] [address] 08/13/2023 15:44:20 08/13/2023 16:39:35 Degeneration of cervical intervertebral disc 56042495 M50.30 Hypothyroidism 78252370 E03.9 Migraine 10601342 G43.90 9 Health Concerns Section Related Observation LastModified by Organization Detai ls LastModified Time None Recorded Concern Status LastModified by Organization Details LastModified Time None Recorded Advance Directives Directive None Recorded Payers Insurance Date Sequence Insurance Name Policy Number Policy Telles Covered Member ID Telles Member ID Guarantor Name 08/13/2023 2 FOR LIFE ( - MEDICARE SUPPLEMENT) Kerri Farooq [id number] Kerri Farooq 08/07/2023 1 [place] Kerri Farooq [id number] Kerri Farooq Notes Date Note Type Note Provider Name and Address Organization Details Recorded Time 12/14/2022 text/html Patient returns. She was last seen in 2016 for her right knee and she presents this time for her right knee and is decided she would like to discuss knee replacement surgery. She has been having symptoms for last 15 or 20 years. She complains he can not walk very far because of her knee and poor balance. The knee locks at times. She has had prior injections she is use to leave and Tylenol. Most the pain is the back were knee now. X-rays of her right knee today show a 20 degree anatomic axis valgus deformity with severe pukg-ib-mzvs osteoarthritis lateral compartment. Minimal widening medial joint space. She has significant lower extremity obesity. Her BMI is 36.8. She has lost 30 lb in the last 2 or 3 months and it is unclear why but she is hoping to continue losing weight as weight loss has already been helping somewhat. She cannot take nonsteroidal anti-inflammatory medications. 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 She had her 1st DVT approximately 4 years agowhile in the hospital. The DVT was in both legs it went to both lungs. this occurred when she had been taken off her Xarelto for a procedure. She believes she was off the Xarelto for 2 weeks at that time. She does not have a vena cava filter. She states she has never seen a television maintenance man for evaluation for thrombophilia she does have an oncologist is probably television maintenance man oncologist [facility]. She had a cardiac catheterization 1 month ago and was told it was okay. She had an abnormal EKG that prompted this. Patient had breast cancer in 2013 and during the chemotherapy she developed her 1st DVT. She also had breast implant complications that needed revision. Patient also has a history of thyroid cancer. Damon Fraire MD [address] [place] [address], [place] [address], [place], [address], [facility] [employer] [facility] [employer] [facility] 01/07/2023 16:48:33 01/26/2023 text/html Here to f/u, lab s showed low TSH and since decreasing levothyroxine her unintentional weight loss has stopped and she no longer feels as jittery and anxious on the lower dose. Cori Potter MD [address], [place], [address], [facility] [employer] [facility] [employer] [facility] 01/26/2023 12:00:06 04/30/2023 text/html Here to f/u, lab s showed low TSH and since decreasing levothyroxine her unintentional weight loss has stopped and she no longer feels as jittery and anxious on the lower dose. update 04/30/23: no more weight loss, jitteriness is resolved. She is taking levothyroxine 125 mcg. Her blood bank technician would like her to use a medication like ozempic to help reduce her cardiovascular risk. Cori Potter MD [address], [place], [address], [facility] [employer] [facility] [employer] [facility] 04/30/2023 10:06:56 06/29/2023 text/html Kerri Farooq is a 77 year old female here today for a hospital follow up. She was admitted to [facility] for an elevated pulse rate. She called the ambulance because her pulse was up to 165, she states that her blood pressure was also down to 80/65. The ambulance was able to regulate her pulse but she still chose to go to the hospital.She was able to see Dr. Grover after she was discharge who has ordered a holter monitor. She came in today because she has generalized malaise. She states this has been consistent since discharge. Her TSH was 15.4 on 04/30/23, she was meant to have an increase of her levothyroxine at that point but has not done that yet. We will start the levothyroxine 137 mcg PO daily today. We will see her back in 6 weeks to recheck these levels. She admits to excessive stress. Her grandson is an addict and she is supporting him through rehab and raising her great granddaughter. Her son and daughter both last year tragically. Treva Veras, BRONSON [address], [place], [address], [employer] [facility] 06/29/2023 10:37:34 08/13/2023 text/html Kerri Farooq is a 77 year old female patient here today to follow up on fatigue. She states that she is feeling very poorly. She is having a bad headache. These started about 8 months ago, worsened in April. Had MRI and XR and was told she has arthritis in her neck. She is utilizing lidocaine patches. She cannot take NSAIDs due to Xarelto and feels tylenol puts her to sleep. The pain never stops and will sometimes wake her from sleep. Her blood pressure is high on arrival. She had adverse effects to metoprolol. BRONSON Clay [address] [facility] [address], [place], [address], [employer] 08/31/2023 09:42:38 OBGyn Episode No OBEpisode recorded.
--- OUTSIDE RECORDS SUMMARY | 2024-08-11 13:53 | XMS_ITS | Encounter Summary ---
Author Organization [facility] Address [address] [place] [address] Care Team Providers Care Freezer Laboratory Technician Name Role Phone None, Provider Primary Care Provider Yohan coleman Encounter Details Date Type Department Care Team (Late st Contact Info) Description 12/24/2023 Prep for Procedure [facility] [place] [address] [id number] Cleve Deleon, BOLT SAWYER [address] [phone] (Work) Social History Tobacco Use Types Packs/Day [...] Description 08/20/2024 9:40 AM CDT Hospital Encounter [facility] [place] [address] [id number] Cleve Deleon, BOLT SAWYER 3 [facility] [address] [place] [address] [phone] (Work) documented as of this encounter Visit Diagnoses Diagnosis Myofascial pain- Primary Mylagia and myositis, unspecified documented in this encounter Care Teams Freezer Laboratory Technician Relationship Specialty Start Date End Date None, Provider, PCP - General UNKNOWN PHYSICIAN SPECIALTY 10/09/23 documented as of this encounter
--- OUTSIDE RECORDS SUMMARY | 2024-08-11 13:53 | XMS_ITS | Clinical Summary ---
Author Organization [facility] al Address [address] [place] [address] Care Team Providers Care Plastic Sheets Supervisor Name Role Phone Juanita Grover MD Unavailable Jose Mason MD Unavailable [phone] Sanam Chavez NP Primary Care Provider [phone] Allergies Active Allergy Reactions Criticality Noted Date [...] 11/13/2017 Assessment & Plan (03/09/2020 2:34 PM CREPE MACHINE OPERATOR): Good result. Observe Assessment & Plan (11/13/2017 11:30 AM CDT): Vision improved with MRx. 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 Doing well overall. - Continue [...] Cataract 11/07/2016 09/06/2017 Deep vein thrombosis (DVT) 03/11/2014 0 09/06/2017 Pulmonary embolism 03/11/2014 8 Fuchs' corneal dystrophy of both eyes 01/04/2010 09/06/2017 Assessment & Plan (10/05/2022 2:32 PM CDT): DSEK OU Clear grafts Will f/u w/ local sulfate drier machine operator / me prn Nuclear senile cataract 01/04/201008/13 Surgical History Surgery Date Site/Laterality Comments PORT PLACEMENT CHEST >5 YEARS 05/29/2013 N/A CHOLECYSTECTOMY THYROIDECTOMY 1964 and 1995 partial: total thyroidectomy 1995 CATARACT EXTRACTION, BILATERAL Bilateral CERVICAL CONE BIOPSY CATARACT EXTRACTION 03/15/2015 - 04/12/2015 Right CATARACT EXTRACTION 02/12/2010 - 02/11/2011 Left CORNEAL TRANSPLANT 08/04/2015 Right CORNEAL TRANSPLANT 02/12/2011 - 02/12/2012 Left Medical History Medical History Date Comments DVT (deep venous thrombosis) ([facility]) 11/2013 pulmonary embolism multiple Hypothyroid htn Hyperlipidemia GERD Osteoporosis obesity Obesity Breast cancer ([facility]) 04/2015 left: Chemo Cornea transplant recipient 2014 bila teral History of breast reconstruction Acute pain after mastectomy deve oped MRSA MRSA (methicillin resistant staph aureus) culture positive Fuchs' corneal dystrophy Retinal hemorrhage, left SVT (supraventricular tachycardia) Family History Medical History Relation Name Comments [...] on file Legal Sex Female 7:45 PM CREPE MACHINE OPERATOR Gender Identity Not on file Sexual Orientation [...] 10:57 AM CDT Height 167.6 cm (5' 6) 06/13/2023 2:40 AM CDT Body Mass Index [...] 2023 04/29/2020, 04/29/2020, 04/08/2020, Additional history exists Fall Risk Assessment 06/12/2024 06/13/2023 Influenza Vaccine (Season Ended) 2024 01/06/2019, 11/29/2017, 02/22/2017, Additional history exists Pneumococcal vaccine 65+ Completed 02/22/2017, 11/12 Medical Devices Implanted Type Area Floral Designer Salesperson Device Identifier Shelf Expiration Date Model / Serial / Lot [employer] Ssf-695 Natrelle Inspira Smooth Full Profile Implant 695cc Breast - [id number] - [id number] Implanted:Qty: 1 on 10/02/2017 by Lorrie Doyle MD at [facility] Breast Left: Breast [employer] 04/18/2073 SSF-695 / [id number] / [id number] Explanted Type Area Floral Designer Salesperson Device Identifier Shelf Expiration Date Model / Serial / Lot [employer] [id number] Natrelle 12.5x13cm Style 410mx Highly Cohesive Biocell Surface Latex Free - S000 - [id number] Explanted:Qty: 1 on 10/02/2017 by Lorrie Doyle MD at [facility] Breast Left: Breast [employer] 10/02/2017 [id number] / [id number] Procedures Procedure Name Priority Date/Time Associated Diagnosis Comments DEXA AXIAL SKELETON BONE DENSITY 1 OR MORE SITES Schedule Routine, Read Routine (OP Routine) 10/24/2019 10:34 AM CDT 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 A Z-score below the expected range for age in a patient with recent fractures and/or chronic corticosteroid treatment is consistent with a diagnosis of osteoporosis. B) In post menopausal women and males over 50, comparison of the measured bone mineral density with the average value in young normal subjects (the T-score) has been found to be useful in [...] -2.0 is below the expected range for age. A Z-score below the expected range for age in a patient with recent fractures and/or chronic corticosteroid treatment is consistent with a diagnosis of osteoporosis. B) In post menopausal women and males over 50, comparison of the measured bone mineral density with the average value in young normal subjects (the T-score) has been found to be useful in [...] Relevant to Health Maintenance Insurance FOR LIFE MEDICARE FOR LIFE MEDICARE [facility] Address: [address] [address] [place] [address] FOR LIFE Advance Directives For more information, please contact: [phone] * Full Code (Latest Code Status on File) Date Activated Date Inactivated Comments 06/13/2023 12:26 AM 06/13/2023 5:21 PM Care Teams Plastic Sheets Supervisor Relationship Specialty Start Date End Date Sanam Chavez NP [facility] [address] PCP - General Nurse Practitioner 01/03/24 [place] [address] [address] Consulting Physician Cardiology 06/24/18 Jose Mason MD [address] [place] [address] Consulting Physician Cardiology 06/13/23
--- OUTSIDE RECORDS SUMMARY | 2024-08-11 13:53 | XMS_ITS | Referral Summary ---
Author Organization [facility] al Address [address] [place] [address] Care Team Providers Care Sheet Rock Hanger Name Role Phone Juanita Grover MD Unavailable Jose Mason MD Unavailable [phone] Sanam Chavez NP Primary Care Provider [phone] Allergies Active Allergy Reactions Criticality Noted Date [...] 11/13/2017 Assessment & Plan (03/09/2020 2:34 PM COMMUNITY RELATIONS SPECIALIST): Good result. Observe Assessment & Plan (11/13/2017 11:30 AM CDT): Vision improved with MRx. Lenses in good position - Plan for follow-up in 1 year History of breast cancer 09/19/2017 Overview (09/19/2017): Added automatically from request for surgery [id number] Seroma of breast 09/19/2017 Overview (09/19/2017): Added automatically from request for surgery [id number] Hx of breast reconstruction 09/19/2017 Overview (09/19/2017): Added automatically from request for surgery [id number] Astigmatism following corneal transplant 016 History of [...] DFE Assessment & Plan (03/09/2020 2:34 PM COMMUNITY RELATIONS SPECIALIST): Grafts clear. Doing well overall. - [...] OU Clear grafts Will f/u w/ local powder and primer canning leader / me prn Nuclear senile cataract 01/04/201008/13 [...] on file Legal Sex Female 7:45 PM COMMUNITY RELATIONS SPECIALIST Gender Identity Not on file Sexual [...] on file Medical Devices Implanted Type Area Industrial Tractor Driver Device Identifier Shelf Expiration Date Model / Serial / Lot [employer] Ssf-695 Natrelle Inspira Smooth Full Profile Implant 695cc Breast - [id number] - [id number] Implanted:Qty: 1 on 10/02/2017 by Lorrie Doyle MD at [facility] Breast Left: Breast [employer] 04/18/2073 SSF-695 / [id number] / [id number] Explanted Type Area Industrial Tractor Driver Device Identifier Shelf Expiration Date Model / Serial / Lot [employer] [id number] Natrelle 12.5x13cm Style 410mx Highly Cohesive Biocell Surface Latex Free - S000 - [id number] Explanted:Qty: 1 on 10/02/2017 by Lorrie Doyle MD at [facility] Breast Left: Breast [employer] 10/02/2017 [id number] / [id number] / [id number] Procedures Procedure Name Priority Date/Time Associated Diagnosis [...] Insurance FOR LIFE MEDICARE FOR LIFE MEDICARE [facility] Address: [address] [address] [place] [address] FOR LIFE Advance Directives For more information, please contact: [phone] * Full Code (Latest Code Status on File) Date Activated Date Inactivated Comments 06/13/2023 12:26 AM 06/13/2023 5:21 PM Care Teams Sheet Rock Hanger Relationship Specialty Start Date End Date Sanam Chavez NP [address] [place] [address] [place] [address] PCP - General Nurse Practitioner 01/03/24 [place] [address] [address] Consulting Physician Cardiology 06/24/18 Jose Mason MD [address] [place] [address] Consulting Physician Cardiology 06/13/23
== END 2024-08-11 13:35 | disposition home or self-care (01) ==
PROVIDERS: PCP Nurse Practitioner Adult Health; Visit Provider Nurse Practitioner Adult Health
DX: R51.9 Headache, unspecified (principal); G89.29 Other chronic pain
CPT/HCPCS: 70450

== ENCOUNTER 2025-02-03 11:27 | Outpatient (CLI) | payer MEDICARE, OTHER, SELFPAY ==
--- OUTSIDE RECORDS SUMMARY | 2025-02-03 11:52 | XMS_ITS | Encounter Summary ---
Author Organization [facility] Address [address] [place] [address] Care Team Providers Care Bath Design Sales Consultant Name Role Phone Sanam Chavez NP Primary Care Provider [phone] Reason for Visit * Auth/Cert (Routine) Specialty Diagnoses / Procedures Referred By Contac t Referred To Contact Diagnoses Cervical spondylosis cervical spondylosis Procedures INJ DX OR THERAPUTIC AGENT JOINT W IMAGE G INJ DIAG OR THERAPEUTIC JOINT SECOND LEVEL INJECTION FACET JOINT-C4-5, C5-6 INJECTION FACET JOINT-C4-5, C5-6 Daysi Payan MD Three [facility] [address] [place] [address] Phone: tel: fax: Referral ID Status Reason Start Date Expiration Date Visits Re quested Visits Authorized [id number] 1 1 Encounter Details Date Type Department Care Team (Late st Contact Info) Description 12/03/2024 Hospital Encounter [facility] Interventional [place] [address] [id number] Daysi Payan MD Three [facility] [address] [place] [address] Social History Tobacco Use Types Packs/Day Years Used Date Smoking Tobacco: Never Smokeless Tobacco: Never Alcohol Use Standard Drinks/Week Comments Not Currently 0 (1 standard drink = 0.6 oz pur e alcohol) Comments No Sex and Gender Information Value Date Recorded Sex Assigned at Female 10/27/2024 9:09 AM CDT Legal Sex Female 11:43 AM CDT Gender Identity Not on file Sexual Orientation Not on file documented as of this encounter Plan of Treatment Not on file documented as of this encounter Visit Diagnoses Not on filedocumented in this encounter Admitting Diagnoses Diagnosis Cervical spondylosis Cervical spondylosis without myelopathy documented in this encounter Care Teams Bath Design Sales Consultant Relationship Specialty Start Date End Date Sanam Chavez NP [address] [place] [address] PCP - General NURSE PRACTITIONER 10/27/24 documented as of this encounter
--- OUTSIDE RECORDS SUMMARY | 2025-02-03 11:52 | XMS_ITS | Encounter Summary ---
Author Organization [facility] Address [address] [place] [address] Care Team Providers Care Pc Technician Name Role Phone Sanam Chavez NP Primary Care Provider [phone] Reason for Visit * Auth/Cert (Routine) Specialty Diagnoses / Procedures Referred By Contac t Referred To Contact Diagnoses Cervical spondylosis cervical spondylosis Procedures INJ DX OR THERAPUTIC AGENT JOINT W IMAGE G INJ DIAG OR THERAPEUTIC JOINT SECOND LEVEL INJECTION FACET JOINT-C4, 5, 6 INJECTION FACET JOINT-C4, 5, 6 Daysi Payan MD Three [facility] [address] [place] [address] Phone: tel: fax: Referral ID Status Reason Start Date Expiration Date Visits Re quested Visits Authorized [id number] 1 1 Encounter Details Date Type Department Care Team (Late st Contact Info) Description 01/27/2025 Hospital Encounter [facility] Interventional Pain Management Center [address] [place], [place] [id number] Daysi Payan MD Three [facility] [address] [place] [address] Social History Tobacco Use Types Packs/Day [...] as of this encounter Visit Diagnoses Diagnosis Cervical spondylosis- Primary Cervical spondylosis without myelopathy documented in this encounter Admitting Diagnoses Diagnosis Cervical spondylosis Cervical spondylosis without myelopathy documented in this encounter Care Teams Pc Technician Relationship Specialty Start Date End Date Sanam Chavez NP [address] [place] [address] PCP - General NURSE PRACTITIONER 10/27/24 documented as of this encounter
--- OUTSIDE RECORDS SUMMARY | 2025-02-03 11:52 | XMS_ITS | Clinical Summary ---
Author Organization [facility] al Address [address] [place] [address] Care Team Providers Care Ammunition Assembly Laborer Name Role Phone Juanita Grover MD Unavailable Jose Mason MD Unavailable [phone] Sanam Chavez NP Primary Care Provider [phone] Allergies Active Allergy Reactions Criticality Noted Date [...] 11/13/2017 Assessment & Plan (03/09/2020 2:34 PM WOOD AND HARDWARE OUTFITTER): Good result. Observe Assessment & Plan (11/13/2017 11:30 AM CDT): Vision improved with MRx. Lenses in good position - Plan for follow-up in 1 year History of breast cancer 09/19/2017 Overview (09/19/2017): Added automatically from request for surgery [id number] Seroma of breast 09/19/2017 Overview (09/19/2017): Added automatically from request for surgery [id number] Hx of breast reconstruction 09/19/2017 Overview (09/19/2017): Added automatically from request for surgery [id number] Astigmatism following corneal transplant 016 History of [...] DFE Assessment & Plan (03/09/2020 2:34 PM WOOD AND HARDWARE OUTFITTER): Grafts clear. Doing well overall. - Continue [...] OU Clear grafts Will f/u w/ local marketing analytics specialist / me prn Nuclear senile cataract 01/04/201008/13 [...] History Date Comments DVT (deep venous thrombosis) 11/2013 pul monary embolism multiple Hypothyroid htn Hyperlipidemia GERD Osteoporosis [...] on file Legal Sex Female 7:45 PM WOOD AND HARDWARE OUTFITTER Gender Identity Not on file Sexual Orientation [...] (2 - Td or Tdap) 01/16/2022 01/17/2012 Fall Risk Assessment 06/12/2024 06/13/2023 Covid-19 Vaccine (3 - 2024-2 6 season) 2024 04/29/2020, 04/29/2020, 04/08/2020, Additional history exists Influenza Vaccine (#1) 2024 9, 11/29/2017, 02/22/2017, Additional history exists Pneumococcal vaccine 65+ Completed 02/22/2017, 11/12 Medical Devices Implanted Type Area Oracle Software Engineer Device Identifier Shelf Expiration Date Model / Serial / Lot [employer] Ssf-695 Natrelle Inspira Smooth Full Profile Implant 695cc Breast - [id number] - [id number] Implanted:Qty: 1 on 10/02/2017 by Lorrie Doyle MD at [facility] Breast Left: Breast [employer] 04/18/2073 SSF-695 / [id number] / [id number] Explanted Type Area Oracle Software Engineer Device Identifier Shelf Expiration Date Model / Serial / Lot [employer] [id number] Natrelle 12.5x13cm Style 410mx Highly Cohesive Biocell Surface Latex Free - S000 - [id number] Explanted:Qty: 1 on 10/02/2017 by Lorrie Doyle MD at [facility] Breast Left: Breast [employer] 10/02/2017 [id number] / 000 / [id number] Procedures Procedure Name Priority Date/Time Associated Diagnosis [...] Advance Directives For more information, please contact: [phone] * Full Code (Latest Code Status on File) Date Activated Date Inactivated Comments 06/13/2023 12:26 AM 06/13/2023 5:21 PM Care Teams Ammunition Assembly Laborer Relationship Specialty Start Date End Date Sanam Chavez NP [facility] [place] [address] PCP - General Nurse Practitioner 01/03/24 [place] [address] [address] Consulting Physician Cardiology 06/24/18 Jose Mason MD [address] [place] [address] Consulting Physician Cardiology 06/13/23
--- OUTSIDE RECORDS SUMMARY | 2025-02-03 11:52 | XMS_ITS | Encounter Summary ---
Author Organization [facility] Address [address] [place] [address] Care Team Providers Care Salesperson Yard Goods Name Role Phone None, Provider Primary Care Provider Sanam Ellison NP Primary Care Provider [phone] Reason for Referral * Surgical (Routine) - Closed Specialty Diagnoses / Procedures Referred By Porter shetty Referred To Contact Diagnoses Arthropathy of cervical facet joint Procedures Case request operating room: [facility] CERVICAL Cleve Deleon CNP [address] [address] Phone: tel: [phone] fax: Referral ID Status Reason Start Date Expiration Date Visits Re quested Visits Authorized [id number] Closed 11/29/2023 11/28/2024 1 1 Encounter Details Date Type Department Care Team (Late st Contact Info) Description 11/29/2023 Prep for Procedure [facility] Interventional [place] [address] [id number] Cleve Deleon CNP [address] [phone] [phone] (Work) Social History Tobacco Use Types Packs/Day [...] myelopathy documented in this encounter Care Teams Salesperson Yard Goods Relationship Specialty Start Date End Date None, Provider, PCP - General UNKNOWN PHYSICIAN SPECIALTY 10/09/23 Sanam Chavez NP [address] [place] [address] PCP - General NURSE PRACTITIONER 10/27/24 documented as of this encounter
--- OUTSIDE RECORDS SUMMARY | 2025-02-03 11:53 | XMS_ITS | Encounter Summary ---
Author Organization [facility] Address [address] [place] [address] Care Team Providers Care Mailhouse Operator Name Role Phone None, Provider Primary Care Provider Sanam Ellison NP Primary Care Provider [phone] Encounter Details Date Type Department Care Team (Late st Contact Info) Description 12/24/2023 Prep for Procedure [facility] [address] [facility] [place] [address] [id number] Cleve Deleno, SUPPLY CHAIN ASSISTANT [address] [facility] [address] [place] [address] [phone] (Work) Social History Tobacco Use Types Packs/Day [...] unspecified documented in this encounter Care Teams Mailhouse Operator Relationship Specialty Start Date End Date None, Provider, MD PCP - General UNKNOWN PHYSICIAN SPECIALTY 10/09/23 Sanam Chavez NP [address] [place] [phone] PCP - General NURSE PRACTITIONER 10/27/24 documented as of this encounter
--- OUTSIDE RECORDS SUMMARY | 2025-02-03 11:53 | XMS_ITS | Clinical Summary ---
Author Organization [facility] Address [address] [place] [address] Care Team Providers Care Model And Mold Maker Name Role Phone Sanam Chavez NP Primary Care Provider Allergies Active Allergy Reactions Criticality Noted Date [...] Active Problems Problem Noted Date Diagnosed Date Cervical spondylosis 11/23/2024 Chronic pain of right knee 08/20/2024 Chronic pain of left knee 08/20/2024 Osteoarthritis of right knee , unspecified osteoarthritis type 08/20/2024 Osteoarthritis of left knee, unspecified osteoarthritis type 08/20/2024 Arthropathy of cervical facet joint 11/29/2023 Cervical radiculopathy 10/17/2023 Encounters Date Type Department Care Team Description 01/27/2025 Hospital Encounter [facility] Interventional Pain Management [place] [address] [id number] Daysi Payan MD 12/16/2024 10:00 AM PATTERN WORKER - 12/16/2024 11:59 PM PATTERN WORKER Hospital Encounter [facility] Interventional Pain Management [place] [address] [id number] Cleve Deleon, CAKE PUNCHER Discharge Disposition: Home or Self Care (Routine Discharge) 12/16/2024 Travel 12/03/2024 Hospital Encounter [facility] Interventional Pain Management [place] [address] [id number] Daysi Payan MD 11/23/2024 Telephone [facility] [place] [address] [id number] Cleve Deleon, CAKE PUNCHER Other 11/23/2024 Prep for Procedure [facility] [place] [address] [id number] Cleve Deleon, CAKE PUNCHER from Last 3 Months Social History Tobacco Use Types Packs/Day Years [...] Sign Reading Time Taken Comments Blood Pressure 120/63 12/16/2024 10:24 AM PATTERN WORKER Pulse 81 12/16/2024 10:24 AM PATTERN WORKER Temperature 36.1 C (97 F) 12/16/2024 10:24 AM PATTERN WORKER Respiratory Rate 20 12/16/2024 10:24 AM PATTERN WORKER Oxygen Saturation 97% 12/16/2024 10:24 AM PATTERN WORKER Inhaled Oxygen Concentration - - Weight 96.4 kg (212 lb 9.6 oz) 12/16/2024 10:24 AM PATTERN WORKER Height 167.6 cm (5' 6) 12/16/2024 10:24 AM PATTERN WORKER Body Mass Index 34.31 12/16/2024 10:24 AM PATTERN WORKER Plan of Treatment Health Maintenance Due Date Last Done Comments Annual Medicare Wellness Visit 11/09/2008 RSV Immunization or 60+ Years (1 - 1-dose 75+ series) 11/09/2018 Zoster Vaccines (3 of 3) 03/03/2019 01/06/2019, 11/12 DTaP, Tdap and Td Vaccines (2 - Td or Tdap) 01/16/2022 01/17/2012 COVID-19 Vaccine ( - season) 2024 12/11/2022, 03/03/2021, 04/29/2020, Additional history exists Influenza Adult (#1) 2024 01/06/2019, 11/29/2017, 02/22/2017, Additional history exists Pneumococcal Vaccine: 50+ Years Completed 02/22/2017, 11/22/2010 Dexa Scan (General) Completed 10/24/2019, 10/24/2019, 05/27/2018, Additional history exists Hepatitis A Vaccines Aged Out No long er eligible based on patient's age to complete this topic Meningococcal B Vaccine Aged Out No l onger eligible based on patient's age to complete this topic Meningococcal Vaccine Aged Out No brooke tavares eligible based on patient's age to complete this topic RSV Immunizations Under 20 Months Aged Out No longer eligible based on patient's age to complete this topic Insurance MEDICARE [facility] Care Teams Model And Mold Maker Relationship Specialty Start Date End Date Sanam Chavez NP [address] [place] [address] PCP - General NURSE PRACTITIONER 10/27/24
[2025-02-03 18:48] LABS: Alanine Aminotransferase 15 U/L (6-35); Albumin Level 4.5 g/dL (3.5-5.1); Alkaline Phosphatase 64 U/L (38-126); Anion Gap 6 mmol/L (4-12); Aspartate Amino Transferase 48 U/L (14-36); Bilirubin,Total 0.7 mg/dL (0.2-1.3); Blood Urea Nitrogen 16 mg/dL (7-17); Calcium 10.4 mg/dL (8.4-10.2); Carbon Dioxide 29 mmol/L (22-30); Chloride 103 mmol/L (98-107); Estimated Glomerular Filt Rate > 60; Glucose 96 mg/dL (65-110); Potassium 4.6 mmol/L (3.4-5.0); Sodium 138 mmol/L (137-145); Total Protein 7.5 g/dL (6.3-8.2)
[2025-02-03 19:19] LABS: Hemoglobin A1C 5.7 % (<5.7)
[2025-02-03 19:24] LABS: Thyroid Stimulating Hormone 7.170 uIU/mL (0.465-4.680)
== END 2025-02-03 11:28 | disposition home or self-care (01) ==
PROVIDERS: PCP Nurse Practitioner Adult Health; Visit Provider Nurse Practitioner Adult Health
DX: E07.9 Disorder of thyroid, unspecified (principal); R73.9 Hyperglycemia, unspecified; E78.5 Hyperlipidemia, unspecified; Z83.3 Family history of diabetes mellitus
CPT/HCPCS: 36415; 80053; 83036; 84443